=== PATIENT | male | born 1965 | race Caucasian/White ===

== ENCOUNTER 2018-02-27 08:21 | Emergency (ER) | payer OTHER, MEDICAID ==
[~2018-02-27] VITALS: Ht 160 cm; Wt 121.1 kg
[~2018-02-27 08:21] MED LIST: BENA20TA PO
[2018-02-27 08:27] VITALS: BP 158/79
--- NOTE | 2018-02-27 08:29 | NUR ---
PT AMBULATES TO BED 7
--- NOTE | 2018-02-27 08:40 | NUR ---
PATIENT PRESENTS TO ED WITH C/O PRODUCTIVE COUGH X 1 WK--DENIES F/C NO RHINORRHEA NO HEADACHE DENIES SOB PT CONTRIBUTES COUGH TO "LITTLE PINK PILL" HE TAKES FOR HTN-- FULL CLEAR SPEECH, UPBEAT-JOKING WITH STAFF . DENIES N/V/D; SKIN IS PINK/WARM/DRY; AAOX4 WITH EVEN AND STEADY GAIT; LUNGS LIGHT RALES BL; HR EVEN AND REGULAR; PT DENIES ANY FEVER, CP, SOB AT THIS TIME; PATIENT STATES PAIN OF 0/10 AT THIS TIME; VSS; PATIENT POSITIONED FOR COMFORT; HOB ELEVATED; BEDRAILS UP X2; BED DOWN. ER MD MADE AWARE OF PT STATUS.
--- NOTE | 2018-02-27 09:06 | NUR ---
to and from radiology via
[2018-02-27 09:23] VITALS: BP 139/78
--- NOTE | 2018-02-27 09:24 | NUR ---
Patient discharged with v/s stable. Written and verbal after care instructions given and explained. Patient alert, oriented and verbalized understanding of instructions. Ambulatory with steady gait. All questions addressed prior to discharge. ID band removed. Patient advised to follow up with PMD. Rx of PROMETHAZINE, AZITHROMYCIN given. Patient educated on indication of medication including possible reaction and side effects. Opportunity to ask questions provided and answered.
== END 2018-02-27 09:24 | disposition home or self-care (01) ==
LOC: MED 08:21
DX: J20.9 Acute bronchitis, unspecified (principal); I10 Essential (primary) hypertension
CPT/HCPCS: 71046; 99284

== ENCOUNTER 2019-10-02 10:39 | Emergency (ER) | payer BC, MEDICAID ==
[~2019-10-02] VITALS: Ht 165.1 cm; Wt 118.4 kg
[2019-10-02 10:45] VITALS: BP 130/86
--- NOTE | 2019-10-02 10:54 | NUR ---
PT TAKEN TO ER BED 05
--- NOTE | 2019-10-02 10:56 | NUR ---
PT GIVE FACE MASK. DR. CUEVAS MADE AWARE OF PT SYMPTOMS. Addendum: 10/02/19 at 1105 by HAILE PT GIVEN FACE MASK AND APPLIED OVER NOSE/MOUTH.
--- NOTE | 2019-10-02 11:00 | NUR ---
CAME WITH FRIEND. C/O HACKING COUGH X 1 MONTH THAT IS WORSENING. PHLEGM TINGED WITH BLOOD SOMETIMES WHEN COUGHING FORCEFULLY. STATES NIGHT SWEATS, N/V 1-2X DAILY X 2 WKS. DENIES FEVER, DIARRHEA. PLEURITIC CHEST PAIN 8/10 WITH COUGH. LUNGS CLEAR BILATERALLY. RR 24. TACHY AT 107. PT ALERT AND AWAKE, WHEELCHAIR BOUND. HX- HTN
--- NOTE | 2019-10-02 11:09 | NUR ---
CXR AT BEDSIDE.
--- NOTE | 2019-10-02 11:29 | NUR ---
nose swab done
--- NOTE | 2019-10-02 12:10 | NUR ---
DR CARDENAS AT BEDSIDE
[2019-10-02] MEDS ORDERED: ALBUTEROL SULFATE/IPRATROPIU 3 ML SOL IH ONE (12:25)
--- NOTE | 2019-10-02 12:35 | NUR ---
HHN THERAPY AND RESPIRATORY DRUG GIVEN ORDERED
--- NOTE | 2019-10-02 13:54 | NUR ---
PAIN 4/10 AFTER BREATHING TX
[2019-10-02 13:55] VITALS: BP 134/81
--- NOTE | 2019-10-02 13:55 | NUR ---
Patient discharged with v/s stable. Written and verbal after care instructions given and explained REGARDING COUGH. Patient alert, oriented and verbalized understanding of instructions. PT SELF ASSISTED WHEELCHAIR. All questions addressed prior to discharge. ID band removed. Patient advised to follow up with PMD. Rx of ALBUTEROL, PREDNISONE given. Patient educated on indication of medication including possible reaction and side effects. Opportunity to ask questions provided and answered.
== END 2019-10-02 13:55 | disposition home or self-care (01) ==
LOC: MED 10:39
DX: R05 Cough (principal); I11.0 Hypertensive heart disease with heart failure; I50.9 Heart failure, unspecified; Z98.890 Other specified postprocedural states; Z79.899 Other long term (current) drug therapy
CPT/HCPCS: 71045; 87804; 94640; 99284; J7620; Q0092

== ENCOUNTER 2019-11-15 15:48 | Emergency (ER) | payer MEDICARE, MEDICAID ==
[~2019-11-15] VITALS: Ht 157.5 cm; Wt 122.9 kg
[2019-11-15 15:48] VITALS: BP 135/77
--- NOTE | 2019-11-15 15:52 | NUR ---
PT TO BED 10
--- NOTE | 2019-11-15 16:02 | NUR ---
54/M BIB SELF C/O GENERALIZED ABDOMINAL PAIN PAIN X 3 DAYS AGO. LAST BM THIS AM .NORMAL, DENIES UTI S/S. PMH- CHRONIC BACK PAIN. PATIENT STATES PAIN OF 7/10 AT THIS TIME. PATIENT POSITIONED FOR COMFORT; HOB ELEVATED; BEDRAILS UP X1; BED DOWN. ER MD MADE AWARE OF PT STATUS.
--- NOTE | 2019-11-15 16:24 | NUR ---
LAB AT BEDSIDE.
[2019-11-15 16:38] LABS: BASOPHILS # (AUTO) 0.1 K/uL (0.00-0.22); BASOPHILS % (AUTO) 0.9 % (0.0-2.0); EOSINOPHILS # (AUTO) 0.2 K/uL (0-0.4); EOSINOPHILS % (AUTO) 1.9 % (0.0-4.0); HEMATOCRIT 43.4 % (36-52); HEMOGLOBIN 14.2 g/dL (12.0-18.0); LYMPHOCYTES # (AUTO) 2.1 K/uL (2.0-11.5); LYMPHOCYTES % (AUTO) 17.4 % (20.5-51.1); MEAN CORPUSCULAR HEMOGLOBIN 27 pg (27-31); MEAN CORPUSCULAR HGB CONC 33 g/dL (33-37); MEAN CORPUSCULAR VOLUME 82.3 fL (80-94); MONOCYTES # (AUTO) 0.7 K/uL (0.8-1.0); MONOCYTES % (AUTO) 5.3 % (1.7-9.3); NEUTROPHILS # (AUTO) 9.2 K/uL (1.8-7.7); NEUTROPHILS % (AUTO) 74.5 % (42.2-75.2); PLATELET COUNT (AUTO) 278 K/uL (140-450); RED BLOOD CELL COUNT(AUTO) 5.27 MIL/uL (4.20-6.10); RED CELL DISTRIBUTION WIDTH 14.8 % (11.6-13.7); WHITE BLOOD COUNT (AUTO) 12.4 K/uL (4.8-10.8)
[2019-11-15 16:41] LABS: APPEARANCE,URINE CLEAR (CLEAR); BILIRUBIN,URINE NEGATIVE (NEGATIVE); BLOOD, URINE NEGATIVE (NEGATIVE); COLOR,URINE YELLOW (YELLOW); LEUKOCYTE ESTERASE ,URINE NEGATIVE (NEGATIVE); NITRITE, URINE NEGATIVE (NEGATIVE); PH,URINE 5.5 (5.0-9.0); UGLUCOSE NEGATIVE (NEGATIVE)
[2019-11-15 17:06] LABS: ANION GAP 8.4 (8-16); POTASSIUM 4.4 mmol/L (3.5-5.1)
[2019-11-15 17:07] LABS: ALBUMIN 3.3 g/dL (3.4-5.0); CREATININE 1.4 mg/dL (0.7-1.3); TOTAL BILIRUBIN 0.4 mg/dL (0.0-1.0)
[2019-11-15 18:08] VITALS: BP 125/62
--- NOTE | 2019-11-15 18:09 | NUR ---
Patient discharged with v/s stable. Written and verbal after care instructions given and explained. Patient alert, oriented and verbalized understanding of instructions. Wheel Chair Assisted with to car. All questions addressed prior to discharge. ID band removed. Patient advised to follow up with PMD.NO Rx given. Patient educated on indication of medication including possible reaction and side effects. Opportunity to ask questions provided and answered.
== END 2019-11-15 18:00 | disposition home or self-care (01) ==
LOC: MED 15:52
DX: R10.9 Unspecified abdominal pain (principal); R05 Cough; I10 Essential (primary) hypertension; Z98.890 Other specified postprocedural states
CPT/HCPCS: 36415; 80053; 81003; 83690; 85025; 99284

== ENCOUNTER 2019-12-28 19:10 | Inpatient (IN) | payer OTHER, MEDICAID ==
[~2019-12-28] VITALS: Ht 160 cm; Wt 121.6 kg
[2019-12-28 19:25] VITALS: BP 107/75
--- NOTE | 2019-12-28 19:28 | NUR ---
TO LOBBY A/W BED AMBULATORY
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
--- NOTE | 2019-12-28 20:02 | NUR ---
Dr. Winston examining patient.
--- NOTE | 2019-12-28 20:27 | NUR ---
PT TAKEN TO CT
--- NOTE | 2019-12-28 20:35 | NUR ---
PT RETURN FROM CT
--- NOTE | 2019-12-28 20:35 | NUR ---
Claudy lopez in [facility] - 12/28/19 at 2035 by BARB PATIENT BACK FROM CT.
[2019-12-28 21:12] LABS: BASOPHILS # (AUTO) 0.1 K/uL (0.00-0.22); BASOPHILS % (AUTO) 0.6 % (0.0-2.0); EOSINOPHILS # (AUTO) 0.2 K/uL (0-0.4); EOSINOPHILS % (AUTO) 1.3 % (0.0-4.0); HEMATOCRIT 46.4 % (36-52); LYMPHOCYTES # (AUTO) 3.1 K/uL (2.0-11.5); MEAN CORPUSCULAR HEMOGLOBIN 27 pg (27-31); MEAN CORPUSCULAR HGB CONC 32 g/dL (33-37); MEAN CORPUSCULAR VOLUME 82.1 fL (80-94); MONOCYTES # (AUTO) 0.7 K/uL (0.8-1.0); MONOCYTES % (AUTO) 4.9 % (1.7-9.3); NEUTROPHILS # (AUTO) 11.2 K/uL (1.8-7.7); NEUTROPHILS % (AUTO) 73.2 % (42.2-75.2); PLATELET COUNT (AUTO) 253 K/uL (140-450); RED BLOOD CELL COUNT(AUTO) 5.65 MIL/uL (4.20-6.10); WHITE BLOOD COUNT (AUTO) 15.3 K/uL (4.8-10.8)
[2019-12-28 21:22] LABS: ANION GAP 14.3 (8-16); CARBON DIOXIDE 27.6 mmol/L (21-32); CREATININE 1.6 mg/dL (0.6-1.3); POTASSIUM 3.9 mmol/L (3.5-5.1)
[2019-12-28 21:28] LABS: ALBUMIN 3.7 g/dL (3.4-5.0); TOTAL BILIRUBIN 0.6 mg/dL (0.0-1.0)
--- NOTE | 2019-12-28 22:01 | NUR ---
EKG PERFORMED AT BEDSIDE
--- NOTE | 2019-12-28 22:26 | NUR ---
PATIENT SITTING UP IN CHAIR, NO NEEDS NEEDS ADDRESSED.
--- NOTE | 2019-12-28 22:30 | NUR ---
VSS on monitor. patient sitting up in bed.
--- NOTE | 2019-12-28 23:20 | NUR ---
2ND TROP DRAWN---CONTINUE TO WAIT FOR DISPO
[2019-12-29] MEDS ORDERED: ASPIRIN 325 MG TAB PO ONE (00:05)
--- NOTE | 2019-12-29 00:30 | NUR ---
PATIENT IV STARTED IN LAC. PATIENT TOLERATED WELL. VSS ON MONITOR.
[2019-12-29] MEDS ORDERED: FUROSEMIDE 40 MG/4 ML VIAL IVP ONE (00:35)
--- NOTE | 2019-12-29 01:11 | NUR ---
PATIENT BEING EVALUATED BY MED STUDENTS AT BEDSIDE.
--- NOTE | 2019-12-29 01:29 | NUR ---
PATIENT ADMITTED TO THE CARE OF DR. BAZZI. PATEINT TRANSFERRED ON MONITOR VIA RDUNFERMLINE BY EMT AND RN. REPORT GIVEN TO TELE NURSE DALLAS.
[2019-12-29 01:30] VITALS: BP 123/93
--- NOTE | 2019-12-29 01:30 | NUR ---
RECEIVED BEDSIDE REPORT FROM ER NURSE. PT CAME IN [facility] AND ABLE TO AMBULATE TO [facility] BED. BREATHING EVEN AND UNLABORED WITH RA. SKIN INTACT, WARM AND DRY TO TOUCH. IV SITE ON LAC 20G, PATENT, INTACT, AND ASYMPTOMATIC. BOARD UPDATED, MRSA SWAB DONE. VS CHECKED, WITHIN PT'S BASELINE. ORIENTED ROOM TO PT. ALL SAFETY MEASUREMENT ARE MET. BED IN LOW POSITION, CALL LIGHT WITHIN REACH.
[2019-12-29 01:42] LABS: PROTHROMBIN TIME 11.2 secs (10.8-13.4)
[2019-12-29] MEDS: HYDROcodone/APAP 10/325 MG 1 TAB TAB PO PRN ×2 (02:26→14:46)
[2019-12-29] MEDS: guaiFENesin DM 200/20 MG-10 ML 10 ML UDC PO PRN ×3 (02:26→17:13)
--- NOTE | 2019-12-29 02:26 | NUR ---
PT C/O LEFT LOW RIB PAIN, 05/28. GIVEN NORCO, PT COUGHING, GIVEN ROBITUSSIN DM MD ORDERED. PT TOLERATED WELL.
--- NOTE | 2019-12-29 03:01 | NUR ---
PAGED DR. BAZZI FOR ELEVATED TROPONIN AND DIET.
[2019-12-29 04:00] VITALS: BP 106/70
--- NOTE | 2019-12-29 05:48 | NUR ---
PT SLEEPING IN BED COMFORTABLY. NO ACUTE DISTRESS NOTED.
--- NOTE | 2019-12-29 06:40 | NUR ---
PT IN STABLE CONDITION. WILL ENDORSE PT TO DAY SHIFT NURSE.
--- NOTE | 2019-12-29 07:15 | NUR ---
RECEIVED PT. FROM NET FISHER NURSEDALLAS. PT. IS IN BED ALERT AND AWAKE. IV ON THE LEFT AC 20G SALINE LOCK. SKIN IS INTACT. DIET STILL NOT IN PLACED, WILL CALL MD FOR FOLLOW UP. CALL LIGHT WITHIN REACH. WILL CONTINUE TO MONITOR.
[2019-12-29 08:00] VITALS: BP 124/82
--- NOTE | 2019-12-29 08:21 | NUR ---
PATIENT HAS BEEN SCREENED AND CATEGORIZED MODERATE NUTRITION RISK. PATIENT WILL BE SEEN WITHIN 3-5 DAYS OF ADMISSION. 12/31/19 01/02/[address]
--- NOTE | 2019-12-29 09:05 | NUR ---
RECEIVED CRITICAL LAB VALUE OF TROPONIN 0.082 FROM JACOB. WILL INFORM
--- NOTE | 2019-12-29 09:06 | NUR ---
TROPONIN LEVEL IS TRENDING DOWN. WILL INFORM MD.
--- NOTE | 2019-12-29 09:20 | NUR ---
ATTEMPTED TO REACH DR. BAZZI REGARDING PT'S CRITICAL TROPONIN, BUT LINE IS BUSY AND OFFICE IS NOT ANSWERING.
[2019-12-29] MEDS: BENAZEPRIL 20 MG TAB PO SCH (10:15)
[2019-12-29] MEDS: HYDROcodone/APAP 5/325 MG 1 TAB TAB PO PRN ×2 (10:15→18:40)
--- NOTE | 2019-12-29 10:17 | NUR ---
MORNING MEDICATIONS GIVEN. BP 124/82, HR 105. NO SIGNS OF DISTRESS NOTED. COMPLAINS OF PAIN 03/28. MEDICATED WITH NORCO 5/325 PO. WILL CONTINUE TO MONITOR.
[2019-12-29] MEDS ORDERED: ALBUTEROL 0.083% 2.5 MG/3 ML NEBU INH PRN (11:25)
[2019-12-29] MEDS ORDERED: ONDANSETRON 4 MG/2 ML VIAL IVP PRN (11:25)
[2019-12-29] MEDS ORDERED: LORazepam 2 MG/ML VIAL IVP PRN (11:25)
[2019-12-29] MEDS ORDERED: HYDROcodone/APAP 5/325 MG 1 TAB TAB PO PRN (11:25)
[2019-12-29] MEDS ORDERED: ACETAMINOPHEN 325 MG TAB PO PRN (11:25)
[2019-12-29 12:00] VITALS: BP 131/95
[2019-12-29] MEDS: IPRATROPIUM 0.02% 0.5 MG/2.5 ML NEBU INH SCH ×2 (13:12→19:09)
[2019-12-29 15:06] LABS: CREATINE KINASE MB 4.3 ng/mL (0-3.6)
[2019-12-29 16:00] VITALS: BP 125/92
--- NOTE | 2019-12-29 17:00 | NUR ---
HOME MEDICATIONS COLLECTED FROM PT. PATIENT REASSURES THAT HE DID NOT TAKE THEM AND JUST WANTED TO SHOW THE NURSE.
--- NOTE | 2019-12-29 17:16 | NUR ---
COUGH MEDICATION GIVEN FOR PERSISTENT, CONTINUOUS COUGH.
--- NOTE | 2019-12-29 17:20 | NUR ---
MEDICATIONS GIVEN TO PHARMACY NOW.
--- NOTE | 2019-12-29 17:40 | NUR ---
SPOKE TO DR. BAZZI ABOUT PT'S TROPONIN, NO NEW ORDERS GIVEN. DISCUSSED ABOUT HOME MEDICATIONS NEEDED TO BE TAKEN, NEW ORDERS WERE GIVEN FOR WARFARIN PER PHARMACY DOSE AND ATORVASTATIN 40MG DAILY. READ BACK AND VERIFIED. WILL FOLLOW THROUGH.
[2019-12-29] MEDS ORDERED: WARFARIN 5 MG TAB PO SCH (18:10)
--- NOTE | 2019-12-29 19:20 | NUR ---
ENDORSED PT. TO POWER PLANT OPERATIONS MANAGER NURSE FOR CONTINUITY OF CARE.
--- NOTE | 2019-12-29 19:21 | NUR ---
RECEIVED PT SITTING ON BED ON HIGH FOWLERS POSITION, AAOX4, VITAL SIGNS STABLE, ST ON TELE, DENIES CHEST PAIN BUT COMPLAINING OF LEFT RIB PAIN AGGRAVATED BY COUGHING, ON PRN PAIN MEDICATION, MOIST COUGH INTERMITTENTLY, PLAN OF CARE DISCUSSED, SAFETY MEASURES IN PLACE, CALL LIGHT WITHIN REACH.
[2019-12-29 20:00] VITALS: BP 119/79
--- NOTE | 2019-12-29 20:05 | NUR ---
PT WITH NAUSEA AND VOMITING, MEDICATED PRN WITH ZOFRAN WITH GOOD RESULT, STILL COMPLAINING OF LEFT SIDE/RIB PAIN AGGRAVATED BY COUGHING, WILL PAGED DR Les BAZZI, ALL NEEDS ATTENDED.
[2019-12-29] MEDS: MORPHINE SULFATE 2 MG/ML SYR IVP PRN (21:24)
[2019-12-30] VITALS: BP 108/62
--- NOTE | 2019-12-30 | NUR ---
PT SLEEPING, EASILY AROUSABLE, VITAL SIGNS STABLE, ST ON TELE, DENIES PAIN AT THIS TIME, NO SOB NOTED, CONTINUE TO MONITOR CLOSELY.
[2019-12-30] MEDS: IPRATROPIUM 0.02% 0.5 MG/2.5 ML NEBU INH SCH ×4 (01:00→19:17)
[2019-12-30] MEDS: guaiFENesin DM 200/20 MG-10 ML 10 ML UDC PO PRN ×4 (03:26→23:07)
--- NOTE | 2019-12-30 03:30 | NUR ---
PT SLEEPING, EASILY AROUSABLE, VITAL SIGNS STABLE, HR-108 BPM, DENIES PAIN, NO SOB NOTED, AMBULATED TO BR WITH STEADY GAIT, VOIDED FREELY, URINE SENT TO LAB FOR TEST, STILL WITH INTERMITTENT COUGH, MEDICATED WITH COUGH SYRUP PRN, PT WENT BACK TO SLEEP, MONITORED CLOSELY.
[2019-12-30 04:00] VITALS: BP 104/74
--- NOTE | 2019-12-30 06:00 | NUR ---
SEEN PT SLEEPING, VISIBLE CHEST RISE AND FALL, NO DISTRESS NOTED, MONITORED CLOSELY.
[2019-12-30 06:34] LABS: BASOPHILS # (AUTO) 0.1 K/uL (0.00-0.22); BASOPHILS % (AUTO) 0.5 % (0.0-2.0); EOSINOPHILS # (AUTO) 0.4 K/uL (0-0.4); EOSINOPHILS % (AUTO) 2.7 % (0.0-4.0); HEMATOCRIT 43.9 % (36-52); HEMOGLOBIN 14.1 g/dL (12.0-18.0); MEAN CORPUSCULAR HEMOGLOBIN 26 pg (27-31); MEAN CORPUSCULAR HGB CONC 32 g/dL (33-37); MEAN CORPUSCULAR VOLUME 81.9 fL (80-94); MONOCYTES # (AUTO) 0.6 K/uL (0.8-1.0); MONOCYTES % (AUTO) 4.6 % (1.7-9.3); NEUTROPHILS # (AUTO) 10.5 K/uL (1.8-7.7); NEUTROPHILS % (AUTO) 77.2 % (42.2-75.2); PLATELET COUNT (AUTO) 215 K/uL (140-450); RED BLOOD CELL COUNT(AUTO) 5.35 MIL/uL (4.20-6.10); WHITE BLOOD COUNT (AUTO) 13.6 K/uL (4.8-10.8)
[2019-12-30 06:58] LABS: PROTHROMBIN TIME 11.4 secs (10.8-13.4)
[2019-12-30 07:06] LABS: ANION GAP 12.2 (8-16); CARBON DIOXIDE 28.3 mmol/L (21-32); CREATININE 1.4 mg/dL (0.6-1.3); POTASSIUM 4.5 mmol/L (3.5-5.1)
--- NOTE | 2019-12-30 07:10 | NUR ---
PT SLEEPING, NO SIGNS OF DISTRESS, REPORT GIVEN TO ALEXANDRO MOSELEY FOR CONTINUITY OF CARE.
--- NOTE | 2019-12-30 07:10 | NUR ---
RECEIVED BEDSIDE REPORT FROM NIGHTSHIFT NURSE. PT RESTING IN BED UPON ARRIVAL. ABLE TO MAKE NEEDS KNOWN. RESPIRATIONS EVEN AND UNLABORED WITH NO SOB OR RESPIRATORY DISTRESS. SKIN WARM AND DRY TO TOUCH. IV SITE IN LEFT AC 20G IS CLEAN, DRY, AND INTACT. SAFETY MEASURES IN PLACE. WILL CONTINUE TO MONITOR.
[2019-12-30 07:15] LABS: MAGNESIUM 1.8 mg/dL (1.8-2.4); PHOSPHORUS 3.2 mg/dL (2.5-4.9)
[2019-12-30 08:00] VITALS: BP 128/74
[2019-12-30] MEDS ORDERED: BENAZEPRIL 20 MG TAB PO SCH (09:00)
[2019-12-30] MEDS: BENAZEPRIL 20 MG TAB PO SCH (09:28)
[2019-12-30] MEDS: ATORVASTATIN 20 MG TAB PO SCH (09:29)
--- NOTE | 2019-12-30 09:31 | NUR ---
ADMINISTERED SCHED MED PRESCRIBED PER MD ORDER. PT TOLERATED WELL. MEDICATION EDUCATION PERFORMED. PT VERBALIZED UNDERSTANDING. WARFARIN NOT GIVEN BECAUSE PHARMACY SAID THE MEDICATION WILL BE ADMINISTERED TONIGHT. SAFETY MEASURES IN PLACE. WILL CONTINUE TO MONITOR.
[2019-12-30] MEDS: MORPHINE SULFATE 2 MG/ML SYR IVP PRN ×2 (09:42→13:46)
--- NOTE | 2019-12-30 09:42 | NUR ---
PT CALLED AND COMPLAINED OF SEVERE PAIN AND COUGHING. PRN PAIN MEDICATION AND GUAIFENESIN ADMINISTERED PRESCRIBED PER MD ORDER. PT TOLERATED WELL. MEDICATION EDUCATION PERFORMED. PT VERBALIZED UNDERSTANDING. SAFETY MEASURES IN PLACE. WILL CONTINUE TO MONITOR
--- NOTE | 2019-12-30 11:00 | NUR ---
HOURLY ROUNDING. PT SLEEPING IN BED. RESPONSIVE TO VERBAL AND TACTILE STIMULI. ABLE TO MAKE NEEDS KNOWN. RESPIRATIONS EVEN AND UNLABORED WITH NO SOB OR RESPIRATORY DISTRESS. SKIN WARM AND DRY TO TOUCH. SAFETY MEASURES IN PLACE. WILL CONTINUE TO MONITOR.
--- NOTE | 2019-12-30 11:56 | NUR ---
DC PLANNIN YRS OLD MALE PT WAS ADMITTED FROM HOME WITH A DX OF HEART FAILURE . PT HAS A HX OF CHF, VALVE REPLACEMENT AND HTN. TROPONIN 0.089,0.123.0.082, 0.059 ,BNP 529 AND 514 .CT CHEST SHOWED PROSTHETIC AORTIC VALVE, CORONARY ARTERY CALCIFICATIONS AND FATTY LIVER. CONTAINER MAKER CONSULT WITH DR JLUIS Hernandez NEPHRO CONSULT WITH DR WHITMAN FOR JM AND DR TRISTEN ROCK FOR LEUKOCYTOSIS . DC PLAN TO GO HOME WHEN STABLE CM TO FOLLOW POST STABILIZATION FAXED TO [employer] ON 12/29/19 AND TODAY CM TO FOLLOW Addendum: 12/31/19 at 1125 by Maria C Santana CM DC PLANNING: SEEN BY SUMMER CAMP COUNSELOR DR MILE MILLAN ORDERED NS AT 75ML/HR MONITOR STRICT I&O AND WAITING FOR URINE AND BLOOD CULTURE SEEN BY ID ORDERED TO CONTINUE THE IV LEVAQUIN. DC PLAN AWAITING FOR CARDIAC EVALUATION .STARTED NEURONTIN FOR POSSIBLE LEFT LOWER EXTREMITY NEUROPATHY. POST STABILIZATION FORM FAXED TO [facility] PLAN TO GO HOME WHEN STABLE CM TO FOLLOW
[2019-12-30 11:59] LABS: CREATINE KINASE MB 7.7 ng/mL (0-3.6)
[2019-12-30 12:00] VITALS: BP 104/71
--- NOTE | 2019-12-30 12:07 | NUR ---
RECEIVED CRITICAL LAB FROM CHEMISTRY. PT TROPONIN LEVEL IS 0.641. DR. BAZZI WAS PAGED. SAFETY MEASURES IN PLACE. WILL CONTINUE TO MONITOR
[2019-12-30] MEDS: GABAPENTIN 100 MG CAP PO SCH ×2 (12:47→17:11)
--- NOTE | 2019-12-30 12:47 | NUR ---
ADMINISTERED SCHED MED PRESCRIBED PER MD ORDER. PT TOLERATED WELL. MEDICATION EDUCATION PERFORMED. PT VERBALIZED UNDERSTANDING. SAFETY MEASURES IN PLACE. WILL CONTINUE TO MONITOR.
[2019-12-30] MEDS: NACL 0.9% 1,000 ML IV SCH (15:04)
--- NOTE | 2019-12-30 15:04 | NUR ---
ADMINISTERED SCHED MED PRESCRIBED PER MD ORDER. PT TOLERATED WELL. MEDICATION EDUCATION PERFORMED. PT VERBALIZED UNDERSTANDING. SAFETY MEASURES IN PLACE. WILL CONTINUE TO MONITOR.
[2019-12-30 16:00] VITALS: BP 105/73
[2019-12-30] MEDS ORDERED: WARFARIN 5 MG TAB PO SCH (17:00)
--- NOTE | 2019-12-30 17:31 | NUR ---
ADMINISTERED SCHED MED PRESCRIBED PER MD ORDER. PT TOLERATED WELL. MEDICATION EDUCATION PERFORMED. PT VERBALIZED UNDERSTANDING. SAFETY MEASURES IN PLACE. WILL CONTINUE TO MONITOR.
--- NOTE | 2019-12-30 18:30 | NUR ---
HOURLY ROUNDING. PT RESTING IN BED UPON ARRIVAL. ABLE TO MAKE NEEDS KNOWN. RESPIRATIONS EVEN AND UNLABORED WITH NO SOB OR RESPIRATORY DISTRESS. SKIN WARM AND DRY TO TOUCH. SAFETY MEASURES IN PLACE. WILL CONTINUE TO MONITOR.
--- NOTE | 2019-12-30 19:15 | NUR ---
RECEIVED ENDORSEMENT AT BEDSIDE FR. REBEKAH RN. PATIENT IS AWAKE, ALERT AND ORIENTED. NO SOB NOTED. NO C/O PAIN AT THIS TIME. RESPIRATION EVEN AND UNLABORED. IV SITE AT LAC GAUGE 20. PLAN OF CARE WAS DISCUSSED. FALL PREVENTION PRECAUTION ACTIVATED. CALL LIGHT WITHIN REACH AT ALL TIMES. Addendum: 12/30/19 at 1952 by Renae Warner RN RECEIVED REPORT FROM ALEXANDRO RAM NOT FROM REBEKAH
--- NOTE | 2019-12-30 19:15 | NUR ---
ENDORSED AT BEDSIDE TO NIGHTSHIFT NURSE. PT RESTING IN BED UPON ARRIVAL. ABLE TO MAKE NEEDS KNOWN. RESPIRATIONS EVEN AND UNLABORED WITH NO SOB OR RESPIRATORY DISTRESS. SKIN WARM AND DRY TO TOUCH. SAFETY MEASURES IN PLACE. PT IS STABLE
[2019-12-30 20:00] VITALS: BP 112/60
--- NOTE | 2019-12-30 21:00 | NUR ---
PATIENT IS SLEEPING. RESPIRATION EVEN AND UNLABORED. NO SOB NOTED.
[2019-12-30] MEDS: HYDROcodone/APAP 5/325 MG 1 TAB TAB PO PRN (23:05)
--- NOTE | 2019-12-30 23:05 | NUR ---
VSS. ADMINISTERED PRN NORCO FOR ABD PAIN 04/27 PT TOLERATED WELL. PT WITH NON PRODUCTIVE COUGH ADMINISTERED PRN ROBITUSSIN. ALL NEEDS MET. CALL LIGHT WITHIN REACH.
[2019-12-31] VITALS: BP 107/71
--- NOTE | 2019-12-31 00:05 | NUR ---
PATIENT IS RESTING. NO PAIN NOTED.
[2019-12-31] MEDS: IPRATROPIUM 0.02% 0.5 MG/2.5 ML NEBU INH SCH ×4 (01:00→19:00)
--- NOTE | 2019-12-31 01:02 | NUR ---
NO HHN TX GIVEN.PT CLAIMS DURING 1899 TX THAT HE DOES NOT WANT TO BE WOKEN UP FOR SECOND TX.
[2019-12-31] MEDS: LEVOFLOXACIN 500 MG/D5W PREMIX 100 ML IV SCH ×2 (01:30→22:42)
--- NOTE | 2019-12-31 02:00 | NUR ---
PATIENT IS SOUND ASLEEP. NO SOB NOTED.
[2019-12-31 04:00] VITALS: BP 126/87
[2019-12-31] MEDS: NACL 0.9% 1,000 ML IV SCH ×3 (04:00→21:11)
--- NOTE | 2019-12-31 04:10 | NUR ---
PATIENT IS ASLEEP. EASILY AROUSABLE THRU VERBAL. VITAL SIGNS TAKEN AND RECORDED. NO DISTRESS NOTED. DENIES PAIN
[2019-12-31 06:18] LABS: BASOPHILS # (AUTO) 0.1 K/uL (0.00-0.22); EOSINOPHILS # (AUTO) 0.5 K/uL (0-0.4); EOSINOPHILS % (AUTO) 4.1 % (0.0-4.0); HEMATOCRIT 42.1 % (36-52); HEMOGLOBIN 13.5 g/dL (12.0-18.0); LYMPHOCYTES # (AUTO) 2.7 K/uL (2.0-11.5); LYMPHOCYTES % (AUTO) 20.4 % (20.5-51.1); MEAN CORPUSCULAR HEMOGLOBIN 26 pg (27-31); MEAN CORPUSCULAR HGB CONC 32 g/dL (33-37); MEAN CORPUSCULAR VOLUME 82.2 fL (80-94); MONOCYTES # (AUTO) 0.6 K/uL (0.8-1.0); MONOCYTES % (AUTO) 4.8 % (1.7-9.3); NEUTROPHILS # (AUTO) 9.2 K/uL (1.8-7.7); NEUTROPHILS % (AUTO) 69.7 % (42.2-75.2); PLATELET COUNT (AUTO) 205 K/uL (140-450); RED BLOOD CELL COUNT(AUTO) 5.12 MIL/uL (4.20-6.10); WHITE BLOOD COUNT (AUTO) 13.2 K/uL (4.8-10.8)
[2019-12-31 06:49] LABS: CARBON DIOXIDE 30.6 mmol/L (21-32); CREATININE 1.3 mg/dL (0.6-1.3); POTASSIUM 4.6 mmol/L (3.5-5.1)
[2019-12-31 06:50] LABS: PROTHROMBIN TIME 12.8 secs (10.8-13.4)
[2019-12-31 06:54] LABS: MAGNESIUM 1.8 mg/dL (1.8-2.4); PHOSPHORUS 3.4 mg/dL (2.5-4.9)
--- NOTE | 2019-12-31 07:29 | NUR ---
ENDORSED PATIENT TO AM SHIFT RN FOR CONTINUITY OF CARE. NO SOB NOTED.
--- NOTE | 2019-12-31 07:30 | NUR ---
RECEIVED PT FROM OCCUPATIONAL THERAPY ASST NURSEVIDAL, PT IS AWAKE AND A FALL RISK, IV LINE ON THE LEFT AC G. 20 WITH 1/2 NS INFUSING AT 75 ML/HR, FALL PRECAUTION INITIATED, ALARM ACTIVATED, SIDE RAIS ARE UP AND CALL LIGHT WITHIN REACH, NO SIGN OF DISTRESS NOTED, PT DENIES PAIN AND WILL CONTINUE TO BE MONITORED
[2019-12-31 08:00] VITALS: BP 130/80
[2019-12-31 08:15] LABS: APPEARANCE,URINE SL CLOUDY (CLEAR); BILIRUBIN,URINE NEGATIVE (NEGATIVE); BLOOD, URINE NEGATIVE (NEGATIVE); COLOR,URINE AMBER (YELLOW); LEUKOCYTE ESTERASE ,URINE NEGATIVE (NEGATIVE); NITRITE, URINE NEGATIVE (NEGATIVE); UGLUCOSE NEGATIVE (NEGATIVE)
[2019-12-31] MEDS: BENAZEPRIL 20 MG TAB PO SCH (08:51)
[2019-12-31] MEDS: ATORVASTATIN 20 MG TAB PO SCH (08:52)
[2019-12-31] MEDS: GABAPENTIN 100 MG CAP PO SCH ×3 (08:52→18:27)
--- NOTE | 2019-12-31 08:52 | NUR ---
PT WAS GIVEN THE SCHEDULED AM MEDICATIONS, BP IS 117/77, PULSE IS116, O2 SATURATION IS 9I^%, TEMP IS 98.1, TOLERATED THE MEDICINES AND NO SIGN OF DISTRESS NOTED, WILL MONITOR PT. Addendum: 12/31/19 at 0857 by Nora Ley RN O2 SATURATION ON THE ABOVE NOTE IS 96%.
[2019-12-31] MEDS: guaiFENesin DM 200/20 MG-10 ML 10 ML UDC PO PRN (09:06)
--- NOTE | 2019-12-31 09:06 | NUR ---
PT WAS GIVEN ROBITUSSIN 10ML FOR THE C/O OF COUGH, WILL MONITOR PT.
[2019-12-31 09:16] LABS: RBC,URINE NONE SEEN /HPF (0-5); WBC,URINE 0-5 /HPF (0-5)
--- NOTE | 2019-12-31 11:20 | NUR ---
PT IS RESTING NOW AND NO SIGN OF DISTRESS NOTED.
[2019-12-31 12:00] VITALS: BP 115/67
--- NOTE | 2019-12-31 14:43 | NUR ---
PT WAS GIVEN ORAL MEDICATION NOW, WILL MONITOR PT.
[2019-12-31 16:00] VITALS: BP 128/87
[2019-12-31] MEDS ORDERED: WARFARIN 1 MG TAB ONE (17:41)
[2019-12-31] MEDS ORDERED: WARFARIN 5 MG TAB ONE (17:42)
[2019-12-31] MEDS: WARFARIN 1 MG, WARFARIN 5 MG PO SCH ×2 (18:29)
--- NOTE | 2019-12-31 18:29 | NUR ---
PT WAS GIVEN ORAL MEDICATIONS NOW, PARAMETERS CHECKED, WILL MONITOR PT.
--- NOTE | 2019-12-31 19:15 | NUR ---
ENDORSED PT TO UTILITY SUPERVISOR BOAT AND PLANT NURSE, VIDAL,FOR CONTINUITY OF CARE. PT IS STABLE AT THIS TIME.
--- NOTE | 2019-12-31 19:16 | NUR ---
ENDORSEMENT RECEIVED AT BEDSIDE FROM AM SHIFT RN. PATIENT IS LYING IN BED. ALERT AND ORIENTED. ABLE TO MAKE NEEDS KNOWN. NO SOB NOTED. RESPIRATION EVEN AND UNLABORED. DENIES PAIN AND DISCOMFORT. IV SITE INFUSING. PATIENT IS AMBULATORY. FULL CODE. NKA. PLAN OF CARE WAS DISCUSSED. CALL LIGHT WITHIN REACH.
--- NOTE | 2019-12-31 19:27 | NUR ---
PT REFUSED HHN TX. HE SAID HE DOES NOT WANT IT. PT IS 98% ON RA. HR 114. B/S DIMINISHED. WILL CONT TO MONITOR
[2019-12-31 20:00] VITALS: BP 112/68
--- NOTE | 2019-12-31 21:11 | NUR ---
PATIENT IS SLEEPING. RESPIRATION EVEN AND UNLABORED. IVF DONE INFUSING, HANGED NEW IV FLUID NS 1L AT 75 CC/HR PER MD ORDER.
[2019-12-31 22:18] LABS: BARBITURATE, URINE NEGATIVE ng/ml (NEG <=200); BENZODIAZEPINE, URINE NEGATIVE ng/mL (NEG <=200); CANNABINOID, URINE NEGATIVE ng/mL (NEG <=50); COCAINE, URINE NEGATIVE ng/mL (NEG <=300); OPIATE, URINE NEGATIVE ng/mL (NEG <=2000); PHENCYCLIDINE SCREEN,URINE NEGATIVE ng/mL (NEG <=25)
--- NOTE | 2019-12-31 22:47 | NUR ---
PATIENT IS SLEEPING EASILY AROUSABLE THRU VERBAL STIMULI. ADMINISTERED IV ATB ORDERED. NO A/R NOTED. MED ED PROVIDED. NOT IN ANY ACUTE DISTRESS. CONTINUE TO MONITOR.
--- NOTE | 2020-01-01 00:03 | NUR ---
PATIENT'S VITAL SIGNS TAKEN AND RECORDED. PATIENT STABLE. DENIES ANY PAIN/DISCOMFORT.
[2020-01-01 00:06] VITALS: BP 118/52
[2020-01-01] MEDS: IPRATROPIUM 0.02% 0.5 MG/2.5 ML NEBU INH SCH ×4 (00:29→19:33)
--- NOTE | 2020-01-01 00:29 | NUR ---
NO HHN TX. PT SAID TO NOT WAKE HIM UP AT 1AM. WILL CONT TO MONITOR
--- NOTE | 2020-01-01 01:51 | NUR ---
PATIENT IS SLEEPING. RESPIRATION EVEN AND UNLABORED. NOT IN ANY ACUTE DISTRESS.
--- NOTE | 2020-01-01 02:46 | NUR ---
NURSING ROUNDS DONE. PATIENT IS ASLEEP. NO SOB NOTED. CALL LIGHT WITHIN REACH
[2020-01-01 04:00] VITALS: BP 139/77
--- NOTE | 2020-01-01 06:27 | NUR ---
NOTED LAC IV SITE OUT OF THE VEIN. NO BLEEDING NOTED. REINSERTED G24 IV TO R ARM BY THE CHARGE NURSE ALEXANDRO QUICK. WITH GOOD BLOOD RETURN. SECURED SITE. TOLERATED INSERTION WELL. ATTEMPTED X1. RECONNECTED IVF, INFUSING WELL.
[2020-01-01 06:31] LABS: BASOPHILS # (AUTO) 0.1 K/uL (0.00-0.22); BASOPHILS % (AUTO) 0.8 % (0.0-2.0); EOSINOPHILS # (AUTO) 0.6 K/uL (0-0.4); EOSINOPHILS % (AUTO) 4.4 % (0.0-4.0); HEMATOCRIT 45.6 % (36-52); HEMOGLOBIN 14.5 g/dL (12.0-18.0); LYMPHOCYTES # (AUTO) 2.6 K/uL (2.0-11.5); LYMPHOCYTES % (AUTO) 20.2 % (20.5-51.1); MEAN CORPUSCULAR HEMOGLOBIN 26 pg (27-31); MEAN CORPUSCULAR HGB CONC 32 g/dL (33-37); MEAN CORPUSCULAR VOLUME 82.6 fL (80-94); MONOCYTES # (AUTO) 0.6 K/uL (0.8-1.0); MONOCYTES % (AUTO) 4.6 % (1.7-9.3); NEUTROPHILS # (AUTO) 9.1 K/uL (1.8-7.7); PLATELET COUNT (AUTO) 231 K/uL (140-450); RED BLOOD CELL COUNT(AUTO) 5.52 MIL/uL (4.20-6.10); RED CELL DISTRIBUTION WIDTH 14.6 % (11.6-13.7)
[2020-01-01 06:42] LABS: PROTHROMBIN TIME 14.7 secs (10.8-13.4)
[2020-01-01 06:51] LABS: ANION GAP 11.9 (8-16); CARBON DIOXIDE 28.4 mmol/L (21-32); POTASSIUM 4.3 mmol/L (3.5-5.1)
--- NOTE | 2020-01-01 07:10 | NUR ---
ENDORSED PATIENT AT BEDSIDE TO AM SHIFT RN FOR CONTINUITY OF CARE. NO SOB NOTED.
[2020-01-01 07:16] LABS: MAGNESIUM 1.9 mg/dL (1.8-2.4); PHOSPHORUS 2.9 mg/dL (2.5-4.9)
--- NOTE | 2020-01-01 07:25 | NUR ---
RECEIVED BEDSIDE REPORT FROM MULTIMEDIA EDUCATIONAL SPECIALIST NURSE. PT IS AWAKE AND ALERT IN BED, SHOWING NO S/S OF DISTRESS. ON ROOM AIR, SKIN IS INTACT. IV SITE CONNER 24 G, SECURED WITH AN ELBOW BOARD AND WRAPPED WITH GAUZE. FALL PRECAUTIONS IN PLACE, CALL LIGHT IS WITHIN REACH. WILL CONTINUE TO MONITOR.
--- NOTE | 2020-01-01 07:45 | NUR ---
PATIENT HAS BEEN SCREENED AND CATEGORIZED MODERATE NUTRITION RISK. PATIENT WILL BE SEEN WITHIN 3-5 DAYS OF ADMISSION. 01/03/20 01/05/[address]
[2020-01-01 08:00] VITALS: BP 137/79
[2020-01-01] MEDS: ATORVASTATIN 20 MG TAB PO SCH (09:18)
[2020-01-01] MEDS: BENAZEPRIL 20 MG TAB PO SCH (09:18)
[2020-01-01] MEDS: GABAPENTIN 100 MG CAP PO SCH ×3 (09:18→17:01)
--- NOTE | 2020-01-01 09:25 | NUR ---
AM MEDS ADMINISTERED, PT TOLERATED WELL.
[2020-01-01 12:00] VITALS: BP 119/58
--- NOTE | 2020-01-01 12:57 | NUR ---
PT SEEN BY DR BAZZI
[2020-01-01 16:00] VITALS: BP 147/45
[2020-01-01] MEDS ORDERED: WARFARIN 1 MG TAB ONE (16:58)
[2020-01-01] MEDS ORDERED: WARFARIN 5 MG TAB ONE (16:59)
[2020-01-01] MEDS: WARFARIN 1 MG, WARFARIN 5 MG PO SCH ×2 (17:03)
--- NOTE | 2020-01-01 18:32 | NUR ---
PT SITTING UP IN BED AND EATING DINNER. NO S/S OF ACUTE DISTRESS.
--- NOTE | 2020-01-01 19:23 | NUR ---
ENDORSED PT TO ACADEMIC ASSISTANT NURSE IN STABLE CONDITION
--- NOTE | 2020-01-01 19:24 | NUR ---
RECEIVED BEDSIDE REPORT FROM DAY SHIFT NURSE, MIKE. PT IS AWAKE AND ALERT IN BED, SHOWING NO S/S OF DISTRESS. ON ROOM AIR, SKIN IS INTACT, WARM AND DRY TO TOUCH. IV SITE CONNER 24 G, SECURED WITH AN ELBOW BOARD AND WRAPPED WITH GAUZE, PATENT, INTACT AND ASYMPTOMATIC. FALL PRECAUTIONS IN PLACE, CALL LIGHT IS WITHIN REACH. WILL CONTINUE TO MONITOR.
--- NOTE | 2020-01-01 19:43 | NUR ---
RECEIVED PATIENT ON ROOM AIR, PULSE OX SAT 98%. SCHEDULED BREATHING TREATMENT ADMINISTERED. TOLERATED TX WELL WITHOUT ADVERSE SIDE EFFECTS. PT MADE AWARE OF ORDERED MEDICATION FREQUENCY AND INSTRUCTED TO CALL NEEDED FOR SOB. NO ACUTE RESPIRATORY DISTRESS NOTED AT THIS TIME. WILL CONTINUE TO MONITOR.
[2020-01-01 20:00] VITALS: BP 128/69
[2020-01-01] MEDS: NACL 0.9% 1,000 ML IV SCH (20:00)
--- NOTE | 2020-01-01 22:19 | NUR ---
CHECKED PT, ASKING IF HAVING CHEST PAIN, OR ANY DISCOMFORT. PT DOING OK AND STATES NO PAIN OR ANY DISCOMFORT. WILL CONTINUE TO MONITOR.
[2020-01-01] MEDS: LEVOFLOXACIN 500 MG/D5W PREMIX 100 ML IV SCH (22:46)
--- NOTE | 2020-01-01 22:46 | NUR ---
GIVEN LEVAQUIN MD ORDERED. PT TOLERATED WELL. WILL CONTINUE TO MONITOR.
[2020-01-02] VITALS: BP 140/64
--- NOTE | 2020-01-02 00:05 | NUR ---
PT SLEEPING IN BED COMFORTABLY. VS WITHIN PT'S BASELINE. WILL CONTINUE TO MONITOR.
[2020-01-02] MEDS: IPRATROPIUM 0.02% 0.5 MG/2.5 ML NEBU INH SCH ×4 (01:00→19:00)
--- NOTE | 2020-01-02 02:36 | NUR ---
PT SLEEPING IN BED COMFORTABLY. NO ACUTE DISTRESS NOTED.
[2020-01-02 04:00] VITALS: BP 122/56
--- NOTE | 2020-01-02 05:00 | NUR ---
PT SLEEPING IN BED COMFORTABLY. NO ACUTE DISTRESS NOTED.
[2020-01-02 06:30] LABS: BASOPHILS # (AUTO) 0.1 K/uL (0.00-0.22); BASOPHILS % (AUTO) 0.7 % (0.0-2.0); EOSINOPHILS # (AUTO) 0.4 K/uL (0-0.4); EOSINOPHILS % (AUTO) 3.2 % (0.0-4.0); HEMATOCRIT 42.9 % (36-52); HEMOGLOBIN 13.7 g/dL (12.0-18.0); MEAN CORPUSCULAR HEMOGLOBIN 26 pg (27-31); MEAN CORPUSCULAR HGB CONC 32 g/dL (33-37); MEAN CORPUSCULAR VOLUME 82.5 fL (80-94); MONOCYTES # (AUTO) 0.4 K/uL (0.8-1.0); MONOCYTES % (AUTO) 3.7 % (1.7-9.3); NEUTROPHILS # (AUTO) 8.3 K/uL (1.8-7.7); NEUTROPHILS % (AUTO) 74.4 % (42.2-75.2); PLATELET COUNT (AUTO) 223 K/uL (140-450); RED CELL DISTRIBUTION WIDTH 14.9 % (11.6-13.7); WHITE BLOOD COUNT (AUTO) 11.2 K/uL (4.8-10.8)
[2020-01-02 06:55] LABS: ANION GAP 12.7 (8-16); CARBON DIOXIDE 26.5 mmol/L (21-32); CREATININE 1.3 mg/dL (0.6-1.3); POTASSIUM 4.2 mmol/L (3.5-5.1)
[2020-01-02 06:57] LABS: MAGNESIUM 1.8 mg/dL (1.8-2.4); PHOSPHORUS 2.7 mg/dL (2.5-4.9)
--- NOTE | 2020-01-02 07:05 | NUR ---
PT IN STABLE CONDITION, WILL ENDORSE PT TO DAY SHIFT NURSE FOR CONTINUOUS CARE.
--- NOTE | 2020-01-02 07:06 | NUR ---
RECEIVED REPORT FROM DIRECTOR OF KIDS NURSE DALLAS FOR CONTINUITY OF CARE. PT IN STABLE CONDITION. RESPIRATIONS EVEN AND UNLABORED. IV INTACT AND PATENT. SAFETY MEASURES IN PLACE AND PATENT. CALL LIGHT AT BEDSIDE. BED IN LOW POSITION. WILL CONTINUE TO MONITOR.
[2020-01-02 08:00] VITALS: BP 148/87
[2020-01-02] MEDS: ATORVASTATIN 20 MG TAB PO SCH (08:41)
[2020-01-02] MEDS: GABAPENTIN 100 MG CAP PO SCH ×3 (08:41→18:15)
[2020-01-02] MEDS: BENAZEPRIL 20 MG TAB PO SCH (08:41)
[2020-01-02] MEDS: NACL 0.9% 1,000 ML IV SCH (08:45)
--- NOTE | 2020-01-02 08:45 | NUR ---
GAVE ORDERED DUE MEDICATIONS AT THIS TIME. PT TOLERATED WELL. RESPIRATIONS EVEN AND UNLABORED. BED IN LOW POSITION. CALL LIGHT AT BEDSIDE. WILL CONTINUE TO MONITOR.
[2020-01-02 09:38] LABS: PROTHROMBIN TIME 17.3 secs (10.8-13.4)
--- NOTE | 2020-01-02 10:33 | NUR ---
PT WATCHING TV SITTING ON SIDE OF BED DANGLING FEET IN STABLE CONDITION. RESPIRATIONS EVEN AND UNLABORED. BED IN LOW POSITION. CALL LIGHT AT BEDSIDE. WILL CONTINUE TO MONITOR.
[2020-01-02 12:00] VITALS: BP 126/72
--- NOTE | 2020-01-02 12:45 | NUR ---
PT EATING LUNCH AT THIS TIME. RESPIRATIONS EVEN AND UNLABORED. BED IN LOW POSITION. CALL LIGHT AT BEDSIDE. WILL CONTINUE TO MONITOR.
--- NOTE | 2020-01-02 13:26 | NUR ---
01/02/20 RD INITIAL ASSESSMENT COMPLETED PLEASE REFER TO NUTRITION ASSESSMENT UNDER CARE ACTIVITY FOR ESTIMATED NUTRITIONAL NEEDS. 1. CONTINUE CARDIAC DIET TOLERATED 2. RD PROVIDED NUTRITION EDUCATION ON WARFARIN AND VITAMIN K FOODS AND CARDIAC DIET. PT ACCEPTED ED. 3. RD TO FOLLOW-UP 5-7 DAYS, LOW RISK [address]
--- NOTE | 2020-01-02 14:25 | NUR ---
PT LAYING DOWN IN BED IN STABLE CONDITION. RESPIRATIONS EVEN AND UNLABORED. BED IN LOW POSITION. CALL LIGHT AT BEDSIDE. WILL CONTINUE TO MONITOR.
[2020-01-02 16:00] VITALS: BP 136/85
--- NOTE | 2020-01-02 16:52 | NUR ---
PT WATCHING TV. PACKING ITEMS TO PREPARE FOR DISCHARGE. RESPIRATIONS EVEN AND UNLABORED. BED IN LOW POSITION. CALL LIGHT AT BEDSIDE. WILL CONTINUE TO MONITOR.
[2020-01-02 17:26] LABS: CREATININE,URINE RANDOM 244 mg/dL (30-125); URINE SODIUM, RANDOM 94 mmol/l (40-220)
[2020-01-02] MEDS ORDERED: LEVO750T2 PO (17:41)
[2020-01-02] MEDS ORDERED: WARF6TAB PO (17:41)
[2020-01-02] MEDS ORDERED: WARFARIN 5 MG TAB ONE (18:12)
[2020-01-02] MEDS ORDERED: WARFARIN 1 MG TAB ONE (18:12)
[2020-01-02] MEDS: WARFARIN 1 MG, WARFARIN 5 MG PO SCH ×2 (18:25)
--- NOTE | 2020-01-02 18:55 | NUR ---
GAVE PT DISCHARGE INSTRUCTIONS AND RX PRESCRIPTION TO TAKE TO HOME PHARMACY. PT VERBALIZED UNDERSTANDING OF INSTRUCTIONS. PICKED UP MEDICATIONS FROM HOSPITAL PHARMACY TO GIVE TO PT. REMOVED IV, LUMEN INTACT. REMOVED ID BAND. SECURITY BROUGHT PT MOTORIZED WHEELCHAIR FROM WAREHOUSE. PT INSPECTED NO DAMAGE TO WHEELCHAIR. ESCORTED PT TO LOBBY IN STABLE CONDITION.
== END 2020-01-02 18:50 | disposition home or self-care (01) | DRG 683 ==
LOC: MED 19:10 → MTU 12-29 01:18
PROVIDERS: ADMIT Preventive Medicine Preventive Medicine/Occupational Environmental Medicine; ATTEND Preventive Medicine Preventive Medicine/Occupational Environmental Medicine
DX: N17.0 Acute kidney failure with tubular necrosis (principal); I13.0 Hypertensive heart and chronic kidney disease with heart failure and stage 1 through stage 4 chronic kidney disease, or unspecified chronic kidney disease; Z68.42 Body mass index [BMI] 45.0-49.9, adult; I50.9 Heart failure, unspecified; N18.9 Chronic kidney disease, unspecified; I25.10 Atherosclerotic heart disease of native coronary artery without angina pectoris; K76.0 Fatty (change of) liver, not elsewhere classified; N20.0 Calculus of kidney; E66.01 Morbid (severe) obesity due to excess calories; I25.2 Old myocardial infarction; Z79.01 Long term (current) use of anticoagulants; Z95.2 Presence of prosthetic heart valve
CPT/HCPCS: 36415; 71250; 76770; 80048; 80053; 80305; 81001; 82550; 82553; 82570; 82948; 83735; 83880; 84100; 84300; 84484; 85025; 85610; 85651; 86140; 87040; 87081; 87086; 93005; 94640; 96374; 99285; J1940; J1956; J2270; J2405; J7030; J7644; Q0092

== ENCOUNTER 2020-02-21 13:21 | Inpatient (IN) | payer OTHER, MEDICAID, SELFPAY ==
[~2020-02-21] VITALS: Ht 162.6 cm; Wt 121.6 kg
[~2020-02-21 13:21] MED LIST changes: +LEVO750T2 PO; +WARF6TAB PO
[2020-02-21 13:27] VITALS: BP 146/93
--- NOTE | 2020-02-21 13:31 | NUR ---
Patient ambulated to bed 1. RN evaluating patient at bedside.
--- NOTE | 2020-02-21 14:04 | NUR ---
C/O FATIGUE WITH S0B WORSENING >1 MONTH--SEEN BY PMD 2 WKS AGO GIVEN ANTIBIOTICS DX BRONCHITIS--NO CHANGE PER PT. BLE PEDAL EDEMA--
[2020-02-21 14:30] LABS: BASOPHILS # (AUTO) 0.1 K/uL (0.00-0.22); BASOPHILS % (AUTO) 0.5 % (0.0-2.0); EOSINOPHILS # (AUTO) 0.1 K/uL (0-0.4); EOSINOPHILS % (AUTO) 0.8 % (0.0-4.0); HEMATOCRIT 42.5 % (36-52); HEMOGLOBIN 13.6 g/dL (12.0-18.0); LYMPHOCYTES # (AUTO) 2.4 K/uL (2.0-11.5); LYMPHOCYTES % (AUTO) 18.5 % (20.5-51.1); MEAN CORPUSCULAR HEMOGLOBIN 26 pg (27-31); MEAN CORPUSCULAR HGB CONC 32 g/dL (33-37); MEAN CORPUSCULAR VOLUME 82.3 fL (80-94); MONOCYTES # (AUTO) 0.7 K/uL (0.8-1.0); MONOCYTES % (AUTO) 5.4 % (1.7-9.3); NEUTROPHILS # (AUTO) 9.8 K/uL (1.8-7.7); NEUTROPHILS % (AUTO) 74.8 % (42.2-75.2); PLATELET COUNT (AUTO) 289 K/uL (140-450); RED BLOOD CELL COUNT(AUTO) 5.16 MIL/uL (4.20-6.10); RED CELL DISTRIBUTION WIDTH 15.6 % (11.6-13.7); WHITE BLOOD COUNT (AUTO) 13.1 K/uL (4.8-10.8)
[2020-02-21 14:46] LABS: ALBUMIN 3.4 g/dL (3.4-5.0); ANION GAP 12.5 (8-16); CREATININE 1.5 mg/dL (0.6-1.3); POTASSIUM 4.5 mmol/L (3.5-5.1); TOTAL BILIRUBIN 0.9 mg/dL (0.0-1.0)
[2020-02-21 14:48] LABS: LACTATE DEHYDROGENASE 320 U/L (85-227)
[2020-02-21 14:57] LABS: PROTHROMBIN TIME 11.2 secs (10.8-13.4)
[2020-02-21 15:09] LABS: C-REACTIVE PROTEIN QUANT 3.1 mg/dL (0.0-0.9)
[2020-02-21 15:23] LABS: RSV NEGATIVE (NEGATIVE)
[2020-02-21] MEDS ORDERED: FUROSEMIDE 40 MG/4 ML VIAL IVP SCH (15:25)
--- NOTE | 2020-02-21 15:26 | NUR ---
NOTIFIED ADMITTING FOR BED 01 ADMITTION
--- NOTE | 2020-02-21 15:45 | NUR ---
[employer]PH[employer] PAVING SUPERINTENDENT HAYES CALLED AND WAITING FOR TO CALL BACK
--- NOTE | 2020-02-21 15:50 | NUR ---
DENIES FEELING SOB AT THIS TIME---HOLDING CONVERSATION WITH ME AT THIS TIME 4-5 WORDS / SPEECH------
[2020-02-21] MEDS ORDERED: HYDROcodone/APAP 7.5/325 MG 1 TAB PO PRN (16:10)
[2020-02-21] MEDS ORDERED: ACETAMINOPHEN 325 MG TAB PO PRN (16:10)
[2020-02-21] MEDS ORDERED: DOCUSATE SODIUM 100 MG GELCAP PO PRN (16:10)
[2020-02-21 16:56] LABS: AMYLASE 60 U/L (25-115); CHOL/HDL RATIO 8.1 (1-4.5); FREE T4 (FREE THYROXINE) 1.33 ng/dL (0.76-1.46); HDL CHOLESTEROL 24 mg/dL (40-60); LDL (CALC) 128 mg/dL (60-100); LIPASE 132 U/L (73-393); MAGNESIUM 1.8 mg/dL (1.8-2.4); PHOSPHORUS 3.7 mg/dL (2.5-4.9); THYROID STIMULATING HORMONE 3.24 uIU/mL (0.34-3.74); TRIGLYCERIDES 218 mg/dL (30-150)
--- NOTE | 2020-02-21 17:04 | NUR ---
Pt transferred to Tele via bed 117 with cele Mcdaniel .
--- NOTE | 2020-02-21 17:05 | NUR ---
PATIENT ARRIVED VIA GURNEY FROM ER. RECEIVED REPORT FROM TON NURSE. PATIENT AWAKE, ALERT AND ORIENTED. INTRODUCED SELF TO PATIENT. PLANS OF CARE DISCUSSED. IV INTACT AND PATENT TO RIGHT HAND. INTRODUCED PATIENT TO ROOM AND ENVIRONMENT. Addendum: 02/21/20 at 1909 by Rae Silvestre RN CORRECTION: PT ALERT AND ORIENTED X4.
--- NOTE | 2020-02-21 17:08 | NUR ---
Pt transferred to Tele via [facility] TO ROOM 117 REPORT GIVEN TO SHANNON MC PT'S ELECTRICAL WHEELCHAIR LEFT IN PT'S ROOM----
[2020-02-21 17:30] VITALS: BP 117/89
[2020-02-21] MEDS ORDERED: WARF3TAB PO (17:35)
[2020-02-21] MEDS ORDERED: WARFARIN 1 MG TAB PO SCH (17:40)
[2020-02-21] MEDS ORDERED: ATOR40TA PO (17:56)
[2020-02-21] MEDS ORDERED: AZITHROMYCIN 250 MG TAB PO SCH (18:04)
--- NOTE | 2020-02-21 18:09 | NUR ---
PATIENT HAS A BLACK POUCH WALLET GIVEN TO HIS FRIEND JEREMI FOR SAFE KEEPING, PER PATIENT REQUEST.
[2020-02-21] MEDS ORDERED: hydrALAZINE 20 MG/ML VIAL IVP PRN (18:20)
[2020-02-21] MEDS: FUROSEMIDE 40 MG/4 ML VIAL IVP SCH (18:32)
[2020-02-21] MEDS ORDERED: WARFARIN 5 MG TAB PO SCH (19:00)
--- NOTE | 2020-02-21 19:00 | NUR ---
PATIENT IN STABLE CONDITION. WILL ENDORSE TO NIGHT NURSE FOR CONTINUITY OF CARE.
--- NOTE | 2020-02-21 19:20 | NUR ---
RECEIVED SHIFT REPORT FROM DAYSHIFT NURSE FOR CONTINUITY OF CARE. PT ATTACHED TO TELE MONITOR NO SIGNS OF DISTRESS NOTED. SAFETY MEASURES IN PLACE AND CALL LIGHT WITHIN REACH
[2020-02-21 20:00] VITALS: BP 114/81
[2020-02-21] MEDS: ATORVASTATIN 20 MG TAB PO SCH (21:10)
--- NOTE | 2020-02-21 21:17 | NUR ---
ADMINISTERED 2100 MEDICATION TO PATIENT PER MD ORDER. PATIENT TOLERATED WELL NO SIGNS OF DISTRESS NOTED. TELE MONITOR ATTACHED AND CALL LIGHT WITHIN REACH.
--- NOTE | 2020-02-21 23:48 | NUR ---
ROUNDING PATIENT ASLEEP EASILY AWAKENED. NO SIGNS OF DISTRESS NOTED. 0000 VITALS OBTAINED AND PT TOLERATED WELL. TELE MONITOR ATTACHED AND CALL LIGHT WITHIN REACH. WILL CONTINUE TO MONITOR
[2020-02-22] VITALS: BP 111/67
--- NOTE | 2020-02-22 02:26 | NUR ---
ROUNDING NO SIGNS OF DISTRESS NOTED. PATIENT RESTING IN BED TELE MONITOR ATTACHED CALL LIGHT WITHIN REACH.
[2020-02-22 04:00] VITALS: BP 112/72
--- NOTE | 2020-02-22 04:33 | NUR ---
MORNING VITALS OBTAINED. PT TOLERATED WELL NO SIGNS OF DISTRESS NOTED. TELE MONITOR ATTACHED, CALL LIGHT WITHIN REACH. WILL CONTINUE TO MONITOR
--- NOTE | 2020-02-22 06:15 | NUR ---
ROUNDING PATIENT AWAKE IN BED WATCHING TV. NO SIGNS OF DISTRESS NOTED. ALL MONITORS ATTACHED AND CALL LIGHT WITHIN REACH. PATIENT REQUESTED MORE TAPE ON HIS IV FOR REINFORCEMENT
[2020-02-22 06:57] LABS: BASOPHILS # (AUTO) 0.1 K/uL (0.00-0.22); BASOPHILS % (AUTO) 0.7 % (0.0-2.0); EOSINOPHILS # (AUTO) 0.1 K/uL (0-0.4); EOSINOPHILS % (AUTO) 1.2 % (0.0-4.0); HEMATOCRIT 42.2 % (36-52); HEMOGLOBIN 13.4 g/dL (12.0-18.0); MEAN CORPUSCULAR HEMOGLOBIN 26 pg (27-31); MEAN CORPUSCULAR HGB CONC 32 g/dL (33-37); MEAN CORPUSCULAR VOLUME 83.2 fL (80-94); MONOCYTES # (AUTO) 0.5 K/uL (0.8-1.0); MONOCYTES % (AUTO) 4.9 % (1.7-9.3); NEUTROPHILS # (AUTO) 8.2 K/uL (1.8-7.7); NEUTROPHILS % (AUTO) 75.2 % (42.2-75.2); PLATELET COUNT (AUTO) 237 K/uL (140-450); RED BLOOD CELL COUNT(AUTO) 5.07 MIL/uL (4.20-6.10); RED CELL DISTRIBUTION WIDTH 15.9 % (11.6-13.7); WHITE BLOOD COUNT (AUTO) 10.9 K/uL (4.8-10.8)
--- NOTE | 2020-02-22 07:09 | NUR ---
ENDORSED PATIENT TO DAYSHIFT NURSE FOR CONTINUITY OF CARE. PATIENT IN STABLE CONDITION
--- NOTE | 2020-02-22 07:10 | NUR ---
SHIFT REPORT RECEIVED FROM CTC OPERATOR NURSE. PT IS AWAKE AND RESPONSIVE. NO DISTRESS NOTED. CALL LIGHT IN REACH. WILL CONTINUE TO MONITOR.
--- NOTE | 2020-02-22 07:10 | NUR ---
PT IS IN BED AWAKE AND RESPONSIVE. NO DISTRESS NOTED. NO COMPLAINS OF PAIN. SAFETY MEASURES IN PLACE. CALL LIGHT IN REACH. WILL CONTINUE TO MONITOR.
[2020-02-22 07:38] LABS: ALBUMIN 3.1 g/dL (3.4-5.0); ANION GAP 13.2 (8-16); CARBON DIOXIDE 28.5 mmol/L (21-32); CREATININE 1.6 mg/dL (0.6-1.3); MAGNESIUM 1.9 mg/dL (1.8-2.4); PHOSPHORUS 4.3 mg/dL (2.5-4.9); POTASSIUM 4.7 mmol/L (3.5-5.1); TOTAL BILIRUBIN 0.8 mg/dL (0.0-1.0)
[2020-02-22 08:00] VITALS: BP 99/73
[2020-02-22] MEDS: FUROSEMIDE 40 MG/4 ML VIAL IVP SCH ×2 (08:39→17:00)
[2020-02-22] MEDS: ASCORBIC ACID 500 MG TAB PO SCH (08:39)
[2020-02-22] MEDS: BENAZEPRIL 20 MG TAB PO SCH ×2 (08:40→09:00)
[2020-02-22] MEDS: ZINC SULF 220 MG CAP PO SCH (08:40)
--- NOTE | 2020-02-22 09:00 | NUR ---
BENAZEPRIL NOT GIVEN DUE TO LOW BP. 99/73
--- NOTE | 2020-02-22 09:00 | NUR ---
ASSESSMENT DONE ON PATIENT. PT STOOD UP BE BEDSIDE TO CHANGE. NO DISTRESS NOTED. VITAL SIGNS WERE NORMAL NOTED WITH BLOOD PRESSURE 99/73. WILL CONTINUE TO MONITOR. CALL LIGHT IN REACH.
--- NOTE | 2020-02-22 09:04 | NUR ---
PATIENT HAS BEEN SCREENED AND CATEGORIZED MODERATE NUTRITION RISK. PATIENT WILL BE SEEN WITHIN 3-5 DAYS OF ADMISSION. 02/24/20 02/26/[address]
[2020-02-22 10:55] LABS: PROTHROMBIN TIME 11.4 secs (10.8-13.4)
[2020-02-22 12:00] VITALS: BP 98/54
--- NOTE | 2020-02-22 12:52 | NUR ---
FNS CONSULT RECEIVED FOR CARDIAC DIET EDUCATION. RD WILL COMPLETE NUTRITIONAL ASSESSMENT WITHIN 1-2 DAYS THAT CONSULT WAS RECEIVED. SANDIP [address]
[2020-02-22] MEDS ORDERED: METOPROLOL SUCCINATE 50 MG TABER PO SCH (13:30)
--- NOTE | 2020-02-22 13:30 | NUR ---
ASSESSMENT DONE ON PATIENT. NO DISTRESS NOTED. WILL CONTINUE TO MONITOR. CALL LIGHT IN REACH.
--- NOTE | 2020-02-22 13:42 | NUR ---
DC PLANNIN YRS OLD MALE PATIENT WAS ADMITTED FROM [facility]. PT HAS A HX OF HTN, HLD OBESITY AND HEART FAILURE WITH PROSTHETIC AORTIC VALVE , CXR SHOWED BIBASILAR ATELECTASIS . COVID -19 PENDING, STARTED ON ZINC TABLETS IVF, IV ABX ROCEPHIN AND AZITHROMYCIN. PULMO AND ID CONSULTED DC PLAN PER MD'S RECOMMENDATIONS .CM TO FOLLOW. Addendum: 02/23/20 at 1105 by Maria C Santana CM DC PLANNING: COVID TEST NEGATIVE .SEEN BY PULMO DR MOORE ,RECOMMENDED TITRATE FIO2 MAINTAIN O2 SAT GREATER THAN 90% , ROAD ROLLER OPERATOR CONTINUE WITH LASIX AND CARDIAC MEDS, ID DR RAMON CONTINUE EMPIRIC COVERAGE WITH AZITHROMYCIN AND ROCEPHIN F/U WITH SPUTUM GRAM STAIN AND CULTURE. DC PLAN PER MD'S RECOMMENDATIONS. CM TO FOLLOW Addendum: 02/24/20 at 1356 by Maria C Santana CM DC PLANNING: SEEN BY CARDIOLOGY TECHNOLOGIST DR CAMRYN HILLS JM DIFFERENTIAL INCLUDES PRE-RENAL IN SETTING OF CHF WELL ATN DUE TO HYPERTENSION , CONTINUE WITH DIURESIS IV ABX WITH CEFTRIAXONE AND AZITHROMYCIN. DC PLAN TO GO HOME WHEN STABLE CM TO FOLLOW.
--- NOTE | 2020-02-22 13:55 | NUR ---
METOPROLOL NOT GIVEN DUE TO LOW BP. 98/54.
--- NOTE | 2020-02-22 13:55 | NUR ---
METOPROLOL NOT GIVEN BLOOD PRESSURE WERE NOT WITH PARAMETERS. BP WAS 98/54
[2020-02-22 16:00] VITALS: BP 92/72
[2020-02-22] MEDS ORDERED: WARFARIN 2.5 MG TAB PO SCH (17:00)
--- NOTE | 2020-02-22 17:30 | NUR ---
LASIX NOT GIVEN. BLOOD PRESSURES NOT WITHIN PARAMETERS.
--- NOTE | 2020-02-22 17:30 | NUR ---
PT IS SITTING BY BED SIDE. NO DISTRESS NOTED.COMADIN GIVEN. PT EDUCATION GIVEN. SAFETY MEASURES IN PLACE. PT WAS GIVEN TO PATIENT. PHONE AND CALL LIGHT IN REACH.
[2020-02-22 17:31] LABS: APPEARANCE,URINE CLEAR (CLEAR); BILIRUBIN,URINE NEGATIVE (NEGATIVE); BLOOD, URINE NEGATIVE (NEGATIVE); COLOR,URINE YELLOW (YELLOW); LEUKOCYTE ESTERASE ,URINE NEGATIVE (NEGATIVE); NITRITE, URINE NEGATIVE (NEGATIVE); UGLUCOSE NEGATIVE (NEGATIVE)
[2020-02-22 17:39] LABS: BARBITURATE, URINE NEGATIVE ng/ml (NEG <=200); BENZODIAZEPINE, URINE NEGATIVE ng/mL (NEG <=200); CANNABINOID, URINE NEGATIVE ng/mL (NEG <=50); COCAINE, URINE NEGATIVE ng/mL (NEG <=300); OPIATE, URINE NEGATIVE ng/mL (NEG <=2000); PHENCYCLIDINE SCREEN,URINE NEGATIVE ng/mL (NEG <=25)
[2020-02-22] MEDS: AZITHROMYCIN 250 MG TAB PO SCH (17:41)
--- NOTE | 2020-02-22 19:24 | NUR ---
SHIFT REPORT GIVEN TO RING SORTER NURSE. PT IS STABLE. CALL LIGHT IN REACH.
--- NOTE | 2020-02-22 19:26 | NUR ---
RECEIVED BEDSIDE REPORT FROM AM SHIFT NURSE. PATIENT IS LYING IN BED, LEFT SIDE LYING, RESTING WITH EYES CLOSED. NO SOB OR DISTRESS NOTED. ON 2LPM VIA NC. RESPIRATIONS EVEN AND UNLABORED. IV ACCESS ON RIGHT AC 22 GAUGE, PATENT, INTACT AND INFUSING WELL. INITIAL ASSESSMENT DONE, SKIN IS INTACT. BED IN LOW, BED LOCKED. SAFETY MEASURES IN PLACE. CALL LIGHT PLACED WITHIN PATIENT REACH. WILL CONTINUE TO MONITOR PATIENT.
[2020-02-22] MEDS: ATORVASTATIN 20 MG TAB PO SCH (21:02)
[2020-02-22 21:38] VITALS: BP 113/83
--- NOTE | 2020-02-22 21:59 | NUR ---
ROUNDS DONE. PATIENT RESTING WITH EYES CLOSED. VISIBLE CHEST RISE AND FALL NOTED. CALL LIGHT WITHIN PATIENT REACH. WILL CONTINUE TO MONITOR PATIENT.
[2020-02-23 00:15] VITALS: BP 115/67
--- NOTE | 2020-02-23 00:15 | NUR ---
VITALS DONE. NO SOB OR DISTRESS NOTED. PATIENT RESTING WITH EYES CLOSED. WILL CONTINUE TO MONITOR PATIENT.
--- NOTE | 2020-02-23 03:00 | NUR ---
ROUNDS DONE. VISIBLE CHEST RISE AND FALL NOTED. WILL CONTINUE TO MONITOR PATIENT.
[2020-02-23 04:15] VITALS: BP 98/68
--- NOTE | 2020-02-23 05:53 | NUR ---
PATIENT IS STATING THAT THE TEMPERATURE IN THE ROOM IS HOT. CHARGE NURSE MADE AWARE AND WILL ENDORSE TO AM SHIFT TO TRY TO MOVE PATIENT TO ANOTHER ROOM.
--- NOTE | 2020-02-23 06:15 | NUR ---
LAB CALLED WITH NEGATIVE COVID-19 RESULT
--- NOTE | 2020-02-23 06:30 | NUR ---
PATIENT MOVED TO ROOM 119B VIA ELECTRIC SCOOTER. BELONGINGS TRANSFERRED WITH PATIENT. PATIENT STATES HE NEVER RECEIVED HIS ELECTRIFIER OPERATOR THAT HIS FRIEND BROUGHT TO HIM WHEN HE WAS ADMITTED. WILL ENDORSE TO AM SHIFT NURSE TO FOLLOW UP.
--- NOTE | 2020-02-23 06:57 | NUR ---
PATIENT IS RESTING COMFORTABLY IN BED. NO SOB OR DISTRESS NOTED. CALL LIGHT WITHIN PATIENT REACH. WILL ENDORSE TO AM SHIFT NURSE FOR CONTINUITY OF CARE.
--- NOTE | 2020-02-23 07:10 | NUR ---
RECEIVED REPORT FROM NIGHT NURSE PT IS SITTING, AAOX4 ON O2 AT 2LPM VIA NC. PT IS STABLE NO DISTRESS NOTED. SAFETY MEASURES IN PLACE AND CALL LIGHT WITHIN REACH. WILL CONTINUE TO MONITOR.
[2020-02-23 07:12] LABS: EOSINOPHILS # (AUTO) 0.2 K/uL (0-0.4); MEAN CORPUSCULAR HEMOGLOBIN 26 pg (27-31); PLATELET COUNT (AUTO) 250 K/uL (140-450)
[2020-02-23 07:31] LABS: BASOPHILS # (AUTO) 0.1 K/uL (0.00-0.22); BASOPHILS % (AUTO) 0.6 % (0.0-2.0); EOSINOPHILS % (AUTO) 1.6 % (0.0-4.0); HEMATOCRIT 43.2 % (36-52); HEMOGLOBIN 13.6 g/dL (12.0-18.0); LYMPHOCYTES # (AUTO) 2.8 K/uL (2.0-11.5); LYMPHOCYTES % (AUTO) 19.4 % (20.5-51.1); MEAN CORPUSCULAR HGB CONC 32 g/dL (33-37); MEAN CORPUSCULAR VOLUME 82.7 fL (80-94); MONOCYTES # (AUTO) 0.6 K/uL (0.8-1.0); MONOCYTES % (AUTO) 4.2 % (1.7-9.3); NEUTROPHILS # (AUTO) 10.6 K/uL (1.8-7.7); NEUTROPHILS % (AUTO) 74.2 % (42.2-75.2); RED BLOOD CELL COUNT(AUTO) 5.22 MIL/uL (4.20-6.10); WHITE BLOOD COUNT (AUTO) 14.3 K/uL (4.8-10.8)
[2020-02-23 08:00] VITALS: BP 123/75
[2020-02-23 08:16] LABS: ALBUMIN 3.2 g/dL (3.4-5.0); ANION GAP 12.5 (8-16); CREATININE 1.7 mg/dL (0.6-1.3); MAGNESIUM 1.8 mg/dL (1.8-2.4); POTASSIUM 4.5 mmol/L (3.5-5.1); TOTAL BILIRUBIN 0.8 mg/dL (0.0-1.0)
[2020-02-23] MEDS: METOPROLOL SUCCINATE 50 MG TABER PO SCH (08:45)
[2020-02-23] MEDS: ZINC SULF 220 MG CAP PO SCH (08:45)
[2020-02-23] MEDS: ASCORBIC ACID 500 MG TAB PO SCH (08:45)
[2020-02-23] MEDS: FUROSEMIDE 40 MG/4 ML VIAL IVP SCH ×2 (08:45→17:00)
--- NOTE | 2020-02-23 08:51 | NUR ---
MEDICATIONS DUE GIVEN CHECK VITAL SIGNS PRIOR TO BP MEDICATIONS. BP 123/75 GA 117. SAFETY MEASURES IN PLACE DENIES PAIN. WILL CONTINUE TO MONITOR.
--- NOTE | 2020-02-23 10:24 | NUR ---
WASH HOUSE WORKER NOTE: SW WAS UNABLE TO MEET WITH PATIENT AT BEDSIDE DUE TO MEDICAL CONDITION. SW CONTACTED [facility] [phone] AND PATIENT'S SISTER DYLAN CHAVEZ [phone] AND LEFT VM. CLARICE WILL FOLLOW UP.
--- NOTE | 2020-02-23 11:30 | NUR ---
CHECK VITAL SIGNS AT THIS TIME. PT IS SLEEPING AND NO DISTRESS NOTED. DENIES PAIN.SAFETY MEASURES IN PLACE AND CALL LIGHT WITHIN REACH.WILL CONTINUE TO MONITOR.
[2020-02-23 12:00] VITALS: BP 102/65
--- NOTE | 2020-02-23 12:22 | NUR ---
02/23/20 RD INITIAL ASSESSMENT COMPLETED PLEASE REFER TO NUTRITION ASSESSMENT UNDER CARE ACTIVITY FOR ESTIMATED NUTRITIONAL NEEDS. 1. CONTINUE CARDIAC DIET WITH FLD RESTRICTION OF 1.5 L/DAY TOLERATED 2. RD PROVIDED PT WITH NUTRITION EDUCATION ON WARFARIN AND VITAMIN K AND CARDIAC DIET. PT ACCEPTED 3. RD TO FOLLOW-UP 3-5 DAYS, MODERATE RISK SANDIP METZ RD
--- NOTE | 2020-02-23 13:47 | NUR ---
SEARCH ENGINE OPTIMIZATION ANALYST NOTE: Basic Screen: Yes High Risk DC Screen [place]: DYLAN Villegas Relationship: SISTER Pre-Admission Living Arrangements: Other Other: [facility] Prior ADL Needs Assistance Current Home Health Name/Tel: N/A Current DME/02 Name/Tel: [facility], [facility] Current Hospice Name/Tel: N/A Current Dialysis Name/Tel: N/A Healthcare Decision Maker: Patient Advance Directive No Physician Orders for Life Sustaining Treatment Form No Patient/Family Have Educational Needs No Discipline: Case Mgt/Social Svcs Tentative Discharge Plan/Destination: Other Other: [facility] Will require assistance post discharge: No Referred to Printer Floor Covering Assistant: No Tentative Discharge Plan Summary: PATIENT IS A 54-YEAR-OLD MALE ADMITTED FOR R/O COVID. PATIENT HAS PMHX OF HYPERTENSION, HEART FAILURE W/ PROSTHETIC HEART VALVE, HYPERLIPEDEMIA, AND OBESITIY. PATIENT WAS ADMITTED FROM [facility]. SW MET WITH PATIENT AT BEDSIDE TO VERIFY DEMOGRAPHICS. PATIENT CONFIRMED THAT HE WAS A RESIDENT OF [facility]. PATIENT REPORTED THAT HE NEEDS ASSISTANCE WITH SOME ADLS BUT IS ABLE TO AMBULATE AT TIMES. PATIENT IS ALERT/ORIENTED. PATIENT REPORTS NO MENTAL HEALTH HISTORY AND NO SUBSTANCE ABUSE HISTORY. TENTATIVE DISCHARGE PLAN IS TO RETURN TO [facility]. NO FURTHER NEEDS IDENTIFIED. Signature: EARL BEARD Date: February 23, 2020 Time: 13:46
--- NOTE | 2020-02-23 14:00 | NUR ---
PT IS SLEEPING AND NO DISTRESS NOTED. DENIES PAIN. WILL CONTINUE TO MONITOR
[2020-02-23 16:00] VITALS: BP 124/85
[2020-02-23] MEDS ORDERED: WARFARIN 5 MG TAB ONE (16:47)
[2020-02-23] MEDS ORDERED: WARFARIN 1 MG TAB ONE (16:47)
--- NOTE | 2020-02-23 17:00 | NUR ---
CHECK VITAL SIGNS BP 83/54 REPORTED TO MD. POWELL NOT GIVEN PER DOCTORS ORDER. WILL CONTINUE TO MONITOR.
[2020-02-23] MEDS: WARFARIN 5 MG, WARFARIN 1 MG PO SCH ×2 (17:07)
[2020-02-23] MEDS: AZITHROMYCIN 250 MG TAB PO SCH (17:49)
--- NOTE | 2020-02-23 19:05 | NUR ---
ENDORSED TO NIGHT NURSE PT IS SITTING AND ALERT. PT IS STABLE
--- NOTE | 2020-02-23 19:06 | NUR ---
RECEIVED BEDSIDE REPORT FROM AM SHIFT NURSE. PATIENT SITTING ON BED. NO SOB OR DISTRESS NOTED. ON RA . RESPIRATIONS EVEN AND UNLABORED. IV ACCESS ON RIGHT AC 22 GAUGE TKO, PATENT, INTACT AND INFUSING WELL. INITIAL ASSESSMENT DONE, SKIN IS INTACT. BED IN LOW, BED LOCKED. SAFETY MEASURES IN PLACE. CALL LIGHT PLACED WITHIN PATIENT REACH. WILL CONTINUE TO MONITOR PATIENT.
[2020-02-23 20:00] VITALS: BP 103/60
--- NOTE | 2020-02-23 20:00 | NUR ---
VITALS DONE. NO SOB OR DISTRESS NOTED. PATIENT RESTING WITH EYES CLOSED. WILL CONTINUE TO MONITOR PATIENT.
--- NOTE | 2020-02-23 21:20 | NUR ---
PT SLEEPING NO RESPIRATORY DISTRESS, DENIES PAIN, WILL CONTINUE TO MONITOR
[2020-02-23] MEDS: ATORVASTATIN 20 MG TAB PO SCH (22:26)
--- NOTE | 2020-02-23 23:20 | NUR ---
TELEMONITORING ON PATIENT CHECKED THE LEADS, PLACED THE LEADS BACK AND CHANGED THE LEAD STICKERS ON THE PATIENT, PATIENT COOPERATIVE.
[2020-02-24] VITALS: BP 93/51
--- NOTE | 2020-02-24 01:46 | NUR ---
CHECKED ON PATIENT, PT SLEEPING, CALLED HIS NAME AND PT RESPONDED, EASILY AWAKENED BY VERBAL STIMULI, WILL CONTINUE TO MONITOR
[2020-02-24 04:00] VITALS: BP 93/50
--- NOTE | 2020-02-24 05:48 | NUR ---
PATIENT REFUSED LABS THIS AM PER MANAGER OF INTERNAL
--- NOTE | 2020-02-24 07:00 | NUR ---
TALKED TO PAT REGARDING REFUSAL OF LABS; AND PT SAID HE IS OK FOR A BLOOD DRAW, BUT WANTS IT TO BE DONE LATER IN THE AM. AND NOT AT 0500 WHEN HE IS SLEEPING
--- NOTE | 2020-02-24 07:15 | NUR ---
INFORMED BUDDY OF LAB, THAT PT WANTS TO BE DRAWN
--- NOTE | 2020-02-24 07:20 | NUR ---
ENDORSED TO AM SHIFT KARISHMA,PT NOT IN RESPIRATORY DISTRESS, PT NO COMPLAINTS OF PAIN PT IS IN STABLE CONDITION, FOR BLOOD DRAW.
--- NOTE | 2020-02-24 07:22 | NUR ---
RECEIVED REPORT FROM NIGHT NURSE PT IS SITTING, NO DISTRESS NOTED AND DENIES PAIN.PT IS HAPPY. SAFETY MEASURES IN PLACE, CALL LIGHT WITHIN REACH. WILL CONTINUE TO MONITOR.
--- NOTE | 2020-02-24 07:50 | NUR ---
PT BP WAS LOW, CHECKED AND ASSESSED PT. BP 122/77 MMHG ON LEFT ARM, BP 100/22 MMHG ON RIGHT ARM. INFORMED DR JSOÉ AND ORDERED TO CHECK BP AFTER AN HOUR. WILL CONTINUE TO MONITOR.
[2020-02-24 08:00] VITALS: BP 120/83
[2020-02-24 08:07] LABS: PROTHROMBIN TIME 19.4 secs (10.8-13.4)
--- NOTE | 2020-02-24 09:00 | NUR ---
CHECK VITAL SIGNS BP 120/83 LA 113 ON THE LEFT ARM, BP 131/93,LA 42 ON THE RIGHT ARM. INFORMED DR JOSÉ. DUE MEDICATIONS GIVEN. WILL CONTINUE TO MONITOR.
[2020-02-24] MEDS: METOPROLOL SUCCINATE 50 MG TABER PO SCH (09:12)
[2020-02-24] MEDS: ASCORBIC ACID 500 MG TAB PO SCH (09:12)
[2020-02-24] MEDS: ZINC SULF 220 MG CAP PO SCH (09:13)
[2020-02-24] MEDS: FUROSEMIDE 40 MG/4 ML VIAL IVP SCH ×2 (09:13→16:23)
[2020-02-24 12:00] VITALS: BP 105/78
--- NOTE | 2020-02-24 12:00 | NUR ---
CHECK VITAL SIGN AND PT BP WHEN LYING DOWN IS LOW BUT WHEN PT IS SITTING BP 105/78 ND 105. PT VERBALIZES FEELING TIRED AND WILL CONTINUE TO MONITOR.
[2020-02-24] MEDS ORDERED: ALBUTEROL SULFATE/IPRATROPIU 3 ML SOL IH PRN (14:10)
[2020-02-24 16:00] VITALS: BP 115/75
[2020-02-24] MEDS ORDERED: WARFARIN 1 MG TAB ONE (16:14)
[2020-02-24] MEDS ORDERED: WARFARIN 5 MG TAB ONE (16:15)
[2020-02-24] MEDS: WARFARIN 5 MG, WARFARIN 1 MG PO SCH ×2 (16:26)
--- NOTE | 2020-02-24 16:35 | NUR ---
MEDICATIONS DUE GIVEN. VITAL SIGNS CHECKED PRIOR TO MEDICATION. BP 115/75 KS: 105. WILL CONTINUE TO MONITOR.
[2020-02-24] MEDS: AZITHROMYCIN 250 MG TAB PO SCH (17:42)
--- NOTE | 2020-02-24 17:47 | NUR ---
MEDICATIONS DUE GIVEN. SAFETY MEASURES IN PLACE AND CALL LIGHT WITHIN REACH. WILL CONTINUE TO MONITOR
--- NOTE | 2020-02-24 19:10 | NUR ---
ENDORSED PT TO NIGHT NURSE PT IS STABLE.
--- NOTE | 2020-02-24 19:15 | NUR ---
RECEIVED BEDSIDE REPORT FROM AM SHIFT RN FOR PT'S CONTINUITY OF CARE. PT IS AAOX4, ON 2L O2 VIA NC, ON VOCATIONAL HORTICULTURE INSTRUCTOR, HAS RIGHT HAND 20G INFUSING WITH NS AT 5ML/HR, SKIN IS INTACT. PT C/O SHORTNESS OF BREATH, RT CAME AT BEDSIDE FOR BREATHING TREATMENT. EXPLAINED TO PT THE SENIOR ORACLE DBA ROUTINE, PT VERBALIZED UNDERSTANDING. SAFETY MEASURES IN PLACE, AND CALL LIGHT IS WITHIN REACH. ENCOURAGED PT TO CHANGE POSITIONS AND SIT UP AT HIGH SALGUERO'S FOR EASE OF BREATHING. SAFETY MEASURES IN PLACE, AND CALL LIGHT IS WITHIN REACH. WILL MONITOR PT THROUGHOUT SHIFT.
[2020-02-24] MEDS: ALBUTEROL SULFATE/IPRATROPIU 3 ML SOL IH SCH (19:19)
[2020-02-24 20:00] VITALS: BP 103/69
[2020-02-24] MEDS: ATORVASTATIN 20 MG TAB PO SCH (21:19)
--- NOTE | 2020-02-24 21:19 | NUR ---
ADMINISTERED SCHEDULED MEDICATION ORDERED. PT TELE LEADS OFF, PT STATED LEADS ALWAYS COME OFF DT EXCESSIVE SWEATING. PT MADE COMFORTABLE, WILL INITIATE NEW MEASURES FOR TROLLEY CAR OPERATOR ADHERENCE.
--- NOTE | 2020-02-24 21:30 | NUR ---
PT'S LEADS ADHERING BETTER ON PT'S SKIN. ENCOURAGED PT TO DRY UP SKIN USING WASHCLOTH WHEN NEEDED. PT VERBALIZED UNDERSTANDING. WILL CONTINUE TO MONITOR PT.
--- NOTE | 2020-02-24 22:00 | NUR ---
FOUND PT WITHOUT O2 NC. REMINDED PT THE IMPORTANCE OF ADHERENCE TO O2 REGIMEN. PT VERBALIZED UNDERSTANDING.
--- NOTE | 2020-02-24 23:00 | NUR ---
PT ASLEEP WITH NO SIGNS OF DISTRESS OR DISCOMFORT. WILL CONTINUE TO MONITOR PT.
[2020-02-25] VITALS: BP 120/90
--- NOTE | 2020-02-25 01:10 | NUR ---
PT ASLEEP WITH NO SIGNS OF DISTRESS. NASAL CANNULA STILL IN PLACE. WILL CONTINUE TO MONITOR.
[2020-02-25 04:00] VITALS: BP 98/66
--- NOTE | 2020-02-25 04:00 | NUR ---
PT ASLEEP, VS CHECKED AND CHARTED. NO SIGNS OF DISTRESS OR DISCOMFORT NOTED. WILL CONTINUE TO MONITOR PT.
--- NOTE | 2020-02-25 06:31 | NUR ---
PT ASLEEP ON RIGHT SIDE, O2 NASAL CANNULA ON, NO SIGNS OF DISTRESS OR DISCOMFORT NOTED. SAFETY MEASURES IN PLACE AND CALL LIGHT IS WITHIN REACH. WILL ENDORSE PT TO AM SHIFT RN FOR PT'S CONTINUITY OF CARE.
[2020-02-25] MEDS: ALBUTEROL SULFATE/IPRATROPIU 3 ML SOL IH SCH ×2 (07:00→13:00)
--- NOTE | 2020-02-25 07:15 | NUR ---
RECEIVED REPORT FROM NIGHT NURSE. PATIENT IS AWAKE, ALERT AND ORIENTED X4. NO S/S OF DISTRESS NOTED. LAB AT BEDSIDE. PLANS OF CARE DISCUSSED. O2 ON @ 2L NC. IV INTACT AND PATENT TO RIGHT HAND SL. SAFETY MEASURES IN PLACE. CALL LIGHT WITHIN REACH.
[2020-02-25 07:38] LABS: BASOPHILS # (AUTO) 0.1 K/uL (0.00-0.22); BASOPHILS % (AUTO) 1.1 % (0.0-2.0); EOSINOPHILS # (AUTO) 0.1 K/uL (0-0.4); EOSINOPHILS % (AUTO) 0.9 % (0.0-4.0); HEMATOCRIT 43.5 % (36-52); HEMOGLOBIN 13.8 g/dL (12.0-18.0); LYMPHOCYTES # (AUTO) 2.4 K/uL (2.0-11.5); LYMPHOCYTES % (AUTO) 18.8 % (20.5-51.1); MEAN CORPUSCULAR HEMOGLOBIN 26 pg (27-31); MEAN CORPUSCULAR HGB CONC 32 g/dL (33-37); MEAN CORPUSCULAR VOLUME 82.4 fL (80-94); MONOCYTES # (AUTO) 0.6 K/uL (0.8-1.0); MONOCYTES % (AUTO) 4.3 % (1.7-9.3); NEUTROPHILS # (AUTO) 9.7 K/uL (1.8-7.7); NEUTROPHILS % (AUTO) 74.9 % (42.2-75.2); PLATELET COUNT (AUTO) 227 K/uL (140-450); RED BLOOD CELL COUNT(AUTO) 5.27 MIL/uL (4.20-6.10); WHITE BLOOD COUNT (AUTO) 12.9 K/uL (4.8-10.8)
[2020-02-25 08:00] VITALS: BP 142/67
[2020-02-25 08:11] LABS: ALBUMIN 3.2 g/dL (3.4-5.0); ANION GAP 13.7 (8-16); CARBON DIOXIDE 29.2 mmol/L (21-32); CREATININE 1.7 mg/dL (0.6-1.3); MAGNESIUM 1.9 mg/dL (1.8-2.4); PHOSPHORUS 3.9 mg/dL (2.5-4.9); POTASSIUM 3.9 mmol/L (3.5-5.1); TOTAL BILIRUBIN 0.8 mg/dL (0.0-1.0)
[2020-02-25 09:27] LABS: PROTHROMBIN TIME 20.6 secs (10.8-13.4)
--- NOTE | 2020-02-25 09:30 | NUR ---
PATIENT ALERT, ORIENTED X4. NO S/S OF DISTRESS NOTED. ABLE TO MAKE NEEDS KNOWN.
[2020-02-25] MEDS: FUROSEMIDE 40 MG/4 ML VIAL IVP SCH (09:54)
[2020-02-25] MEDS: METOPROLOL SUCCINATE 50 MG TABER PO SCH (09:55)
[2020-02-25] MEDS: ASCORBIC ACID 500 MG TAB PO SCH (09:55)
[2020-02-25] MEDS: ZINC SULF 220 MG CAP PO SCH (09:55)
[2020-02-25] MEDS ORDERED: METO50TE2 PO (10:08)
[2020-02-25] MEDS ORDERED: FURO-570 PO (10:21)
[2020-02-25 12:00] VITALS: BP 110/67
--- NOTE | 2020-02-25 12:30 | NUR ---
PT EATING LUNCH. NO DISTRESS NOTED. PATIENT WILL BE DISCHARGE TODAY.
--- NOTE | 2020-02-25 12:55 | NUR ---
DISCHARGE PLANNING: CLARICE CONTACTED [facility] [phone] REGARDING TRANSPORTATION FOR PATIENT. CLARICE LEFT . CLARICE WILL FOLLOW UP. Addendum: 02/25/20 at 1546 by Sean GALVAN CLARICE CONTACTED [facility] AND SPOKE TO SENDY. PER SENDY PATIENT DOES NOT MEET MEDICAL NECESSITY TO RECEIVE TRANSPORTATION THROUGH [facility]. CLARICE WILL FOLLOW UP. Addendum: 02/25/20 at 1553 by Sean GALVAN CLARICE CONTACTED [facility] AND SPOKE TO ELIE[facility]ER [phone] AND ARRANGED FOR TRANSPORTATION AT 1700. NURSE WAS NOTIFIED.
--- NOTE | 2020-02-25 13:33 | NUR ---
WENT TO PTS ROOM TO GIVE BREATHING TX PT REFUSED HE STATED HE WANTS TO SLEEP NO SIGNS OF DISTRESS OR SOB
--- NOTE | 2020-02-25 14:30 | NUR ---
ROUNDS MADE. PATIENT ALERT AND ORIENTED X4. NO S/S OF DISTRESS NOTED.
[2020-02-25 16:30] VITALS: BP 148/75
--- NOTE | 2020-02-25 17:30 | NUR ---
DISCHARGE TO [facility]. PICKED UP BY [facility]IA [facility]. ALL DISCHARGE INSTRUCTIONS AND BELONGINGS GIVEN. IV REMOVED AND ID BAND REMOVED. PT STABLE. POWER WHEEL CHAIR SENT WITH PATIENT.
== END 2020-02-25 17:30 | disposition home or self-care (01) | DRG 871 ==
LOC: EEVIPCON 13:21 → MED 13:21 → MTU 16:07
PROVIDERS: ADMIT General Practice; ATTEND General Practice
DX: A41.9 Sepsis, unspecified organism (principal); J18.9 Pneumonia, unspecified organism; I21.A1 Myocardial infarction type 2; I50.43 Acute on chronic combined systolic (congestive) and diastolic (congestive) heart failure; N17.0 Acute kidney failure with tubular necrosis; I13.0 Hypertensive heart and chronic kidney disease with heart failure and stage 1 through stage 4 chronic kidney disease, or unspecified chronic kidney disease; J98.11 Atelectasis; Z68.42 Body mass index [BMI] 45.0-49.9, adult; E44.0 Moderate protein-calorie malnutrition; I42.9 Cardiomyopathy, unspecified; R65.10 Systemic inflammatory response syndrome (SIRS) of non-infectious origin without acute organ dysfunction; I35.1 Nonrheumatic aortic (valve) insufficiency; N18.3 Chronic kidney disease, stage 3 (moderate); E78.5 Hyperlipidemia, unspecified; K76.0 Fatty (change of) liver, not elsewhere classified; E66.9 Obesity, unspecified; Z95.2 Presence of prosthetic heart valve; Z79.899 Other long term (current) drug therapy; Z79.01 Long term (current) use of anticoagulants; Z03.818 Encounter for observation for suspected exposure to other biological agents ruled out
CPT/HCPCS: 36415; 36600; 71045; 80053; 80305; 81003; 82150; 82550; 82728; 82803; 83036; 83605; 83615; 83690; 83735; 83880; 84100; 84439; 84443; 84484; 85025; 85379; 85384; 85610; 85651; 85730; 86140; 87040; 87081; 87086; 87420; 87804; 93005; 93970; 94640; 97112; 97116; 97161-GP; 97530; 99291; G0482; J0696; J1940; J7030; J7060; Q0092

== ENCOUNTER 2020-03-02 16:48 | Inpatient (IN) | payer OTHER, MEDICAID, SELFPAY ==
[~2020-03-02] VITALS: Ht 160 cm; Wt 122.0 kg
[~2020-03-02 16:48] MED LIST changes: +ATOR40TA PO; +FURO-570 PO; -LEVO750T2 PO; +METO50TE2 PO; +WARF3TAB PO; -WARF6TAB PO
[2020-03-02 16:52] VITALS: BP 96/69
[2020-03-02] MEDS ORDERED: FAMO-90 PO (17:02)
[2020-03-02] MEDS ORDERED: LISI-420 PO (17:02)
[2020-03-02] MEDS ORDERED: WARF3TAB PO (17:02)
[2020-03-02] MEDS ORDERED: ALBU0.0912 IH (17:02)
[2020-03-02] MEDS ORDERED: ACETAMINOPHEN EXTRA STRENGTH 500 MG TAB ONE (18:14)
[2020-03-02] MEDS ORDERED: ACETAMINOPHEN EXTRA STRENGTH 500 MG TAB PO ONE (18:15)
[2020-03-02 18:22] LABS: BASOPHILS # (AUTO) 0.2 K/uL (0.00-0.22); BASOPHILS % (AUTO) 1.8 % (0.0-2.0); EOSINOPHILS # (AUTO) 0.1 K/uL (0-0.4); HEMOGLOBIN 12.6 g/dL (12.0-18.0); LYMPHOCYTES # (AUTO) 2.6 K/uL (2.0-11.5); LYMPHOCYTES % (AUTO) 21.1 % (20.5-51.1); MEAN CORPUSCULAR HEMOGLOBIN 26 pg (27-31); MEAN CORPUSCULAR HGB CONC 32 g/dL (33-37); MEAN CORPUSCULAR VOLUME 83.1 fL (80-94); MONOCYTES # (AUTO) 0.8 K/uL (0.8-1.0); MONOCYTES % (AUTO) 6.5 % (1.7-9.3); NEUTROPHILS # (AUTO) 8.7 K/uL (1.8-7.7); NEUTROPHILS % (AUTO) 69.6 % (42.2-75.2); PLATELET COUNT (AUTO) 250 K/uL (140-450); RED BLOOD CELL COUNT(AUTO) 4.82 MIL/uL (4.20-6.10); RED CELL DISTRIBUTION WIDTH 16.3 % (11.6-13.7); WHITE BLOOD COUNT (AUTO) 12.5 K/uL (4.8-10.8)
[2020-03-02 18:40] LABS: ALBUMIN 3.4 g/dL (3.4-5.0); ANION GAP 15.3 (8-16); CARBON DIOXIDE 27.2 mmol/L (21-32); CREATININE 2.5 mg/dL (0.6-1.3); POTASSIUM 4.5 mmol/L (3.5-5.1); TOTAL BILIRUBIN 0.6 mg/dL (0.0-1.0)
[2020-03-02] MEDS ORDERED: ACETAMINOPHEN 325 MG TAB PO PRN (19:30)
[2020-03-02] MEDS ORDERED: HYDROcodone/APAP 7.5/325 MG 1 TAB PO PRN (19:30)
[2020-03-02] MEDS ORDERED: ONDANSETRON 4 MG/2 ML VIAL IVP PRN (19:30)
[2020-03-02 20:01] LABS: PROTHROMBIN TIME 19.5 secs (10.8-13.4)
[2020-03-02 20:08] LABS: MAGNESIUM 2.3 mg/dL (1.8-2.4); THYROID STIMULATING HORMONE 3.53 uIU/mL (0.34-3.74)
[2020-03-02] MEDS: DOCUSATE SODIUM 100 MG GELCAP PO SCH (21:19)
[2020-03-02 21:44] VITALS: BP 105/65
[2020-03-02] MEDS ORDERED: ALBUTEROL HFA MDI 90 MCG/ACTUATION 8 GM INH PRN (22:15)
[2020-03-02] MEDS: FUROSEMIDE 40 MG/4 ML VIAL IVP SCH (22:55)
[2020-03-03] VITALS: BP 100/64
[2020-03-03 04:00] VITALS: BP 110/91
[2020-03-03] MEDS ORDERED: NACL 0.9% 1,000 ML IV SCH (05:55)
[2020-03-03 08:00] VITALS: BP 129/99
[2020-03-03 08:04] LABS: BASOPHILS % (AUTO) 0.4 % (0.0-2.0); EOSINOPHILS # (AUTO) 0.1 K/uL (0-0.4); EOSINOPHILS % (AUTO) 0.8 % (0.0-4.0); HEMATOCRIT 37.5 % (36-52); HEMOGLOBIN 11.7 g/dL (12.0-18.0); LYMPHOCYTES # (AUTO) 2.2 K/uL (2.0-11.5); LYMPHOCYTES % (AUTO) 19.1 % (20.5-51.1); MEAN CORPUSCULAR HEMOGLOBIN 26 pg (27-31); MEAN CORPUSCULAR HGB CONC 31 g/dL (33-37); MEAN CORPUSCULAR VOLUME 83.7 fL (80-94); MONOCYTES # (AUTO) 0.6 K/uL (0.8-1.0); MONOCYTES % (AUTO) 5.3 % (1.7-9.3); NEUTROPHILS # (AUTO) 8.5 K/uL (1.8-7.7); NEUTROPHILS % (AUTO) 74.4 % (42.2-75.2); PLATELET COUNT (AUTO) 225 K/uL (140-450); RED BLOOD CELL COUNT(AUTO) 4.48 MIL/uL (4.20-6.10); RED CELL DISTRIBUTION WIDTH 16.3 % (11.6-13.7); WHITE BLOOD COUNT (AUTO) 11.4 K/uL (4.8-10.8)
[2020-03-03 08:20] LABS: APPEARANCE,URINE CLEAR (CLEAR); BILIRUBIN,URINE 1+ (NEGATIVE); BLOOD, URINE NEGATIVE (NEGATIVE); COLOR,URINE DARK YELLOW (YELLOW); LEUKOCYTE ESTERASE ,URINE NEGATIVE (NEGATIVE); NITRITE, URINE NEGATIVE (NEGATIVE); UGLUCOSE NEGATIVE (NEGATIVE)
[2020-03-03 08:23] LABS: ANION GAP 14.1 (8-16); CARBON DIOXIDE 27.6 mmol/L (21-32); CREATININE 2.8 mg/dL (0.6-1.3); POTASSIUM 4.7 mmol/L (3.5-5.1)
[2020-03-03 08:26] LABS: MAGNESIUM 2.3 mg/dL (1.8-2.4); PHOSPHORUS 6.3 mg/dL (2.5-4.9)
[2020-03-03] MEDS: LISINOPRIL 20 MG TAB PO SCH (09:04)
[2020-03-03] MEDS: FAMOTIDINE 20 MG TAB PO SCH (09:04)
[2020-03-03] MEDS: ATORVASTATIN 20 MG TAB PO SCH (09:04)
[2020-03-03] MEDS: FUROSEMIDE 40 MG/4 ML VIAL IVP SCH (09:05)
[2020-03-03] MEDS: DOCUSATE SODIUM 100 MG GELCAP PO SCH ×2 (09:05→20:05)
[2020-03-03 09:10] LABS: CHOL/HDL RATIO 5.3 (1-4.5)
[2020-03-03 12:00] VITALS: BP 92/58
[2020-03-03 16:00] VITALS: BP 90/49
[2020-03-03] MEDS ORDERED: WARFARIN 1 MG TAB PO SCH (17:00)
[2020-03-03 20:00] VITALS: BP 87/57
[2020-03-03] MEDS: ALBUTEROL HFA MDI 90 MCG/ACTUATION 8 GM INH PRN (22:38)
[2020-03-04] VITALS: BP 114/91
[2020-03-04 04:00] VITALS: BP 97/77
[2020-03-04 07:19] LABS: ANION GAP 19.4 (8-16); CARBON DIOXIDE 21.8 mmol/L (21-32); CREATININE 3.9 mg/dL (0.6-1.3); POTASSIUM 5.2 mmol/L (3.5-5.1)
[2020-03-04 07:20] LABS: MAGNESIUM 2.5 mg/dL (1.8-2.4); PHOSPHORUS 7.4 mg/dL (2.5-4.9)
[2020-03-04 07:23] LABS: BASOPHILS # (AUTO) 0.1 K/uL (0.00-0.22); BASOPHILS % (AUTO) 0.4 % (0.0-2.0); EOSINOPHILS % (AUTO) 0.2 % (0.0-4.0); HEMATOCRIT 39.2 % (36-52); HEMOGLOBIN 12.3 g/dL (12.0-18.0); LYMPHOCYTES # (AUTO) 1.9 K/uL (2.0-11.5); LYMPHOCYTES % (AUTO) 14.3 % (20.5-51.1); MEAN CORPUSCULAR HEMOGLOBIN 26 pg (27-31); MEAN CORPUSCULAR HGB CONC 31 g/dL (33-37); MEAN CORPUSCULAR VOLUME 83.4 fL (80-94); MONOCYTES # (AUTO) 0.5 K/uL (0.8-1.0); MONOCYTES % (AUTO) 3.9 % (1.7-9.3); NEUTROPHILS # (AUTO) 10.7 K/uL (1.8-7.7); NEUTROPHILS % (AUTO) 81.2 % (42.2-75.2); PLATELET COUNT (AUTO) 277 K/uL (140-450); RED BLOOD CELL COUNT(AUTO) 4.71 MIL/uL (4.20-6.10); RED CELL DISTRIBUTION WIDTH 16.7 % (11.6-13.7); WHITE BLOOD COUNT (AUTO) 13.2 K/uL (4.8-10.8)
[2020-03-04 07:49] LABS: PROTHROMBIN TIME 20.9 secs (10.8-13.4)
[2020-03-04 08:00] VITALS: BP 100/40
[2020-03-04] MEDS: ALBUTEROL HFA MDI 90 MCG/ACTUATION 8 GM INH PRN (08:11)
[2020-03-04] MEDS: ATORVASTATIN 20 MG TAB PO SCH (08:50)
[2020-03-04] MEDS: DOCUSATE SODIUM 100 MG GELCAP PO SCH (08:50)
[2020-03-04] MEDS: FAMOTIDINE 20 MG TAB PO SCH (08:50)
[2020-03-04] MEDS: LISINOPRIL 20 MG TAB PO SCH (08:51)
[2020-03-04] MEDS ORDERED: FUROSEMIDE 40 MG/4 ML VIAL IVP SCH (09:00)
== END 2020-03-04 17:40 | disposition expired ==
LOC: MED 16:48 → MTU 19:28
PROVIDERS: ADMIT General Practice; ATTEND General Practice
DX: I21.A1 Myocardial infarction type 2 (principal); N17.0 Acute kidney failure with tubular necrosis; I50.43 Acute on chronic combined systolic (congestive) and diastolic (congestive) heart failure; Z68.42 Body mass index [BMI] 45.0-49.9, adult; I13.0 Hypertensive heart and chronic kidney disease with heart failure and stage 1 through stage 4 chronic kidney disease, or unspecified chronic kidney disease; J44.9 Chronic obstructive pulmonary disease, unspecified; I95.9 Hypotension, unspecified; Z95.2 Presence of prosthetic heart valve; E78.5 Hyperlipidemia, unspecified; E66.9 Obesity, unspecified; Z91.19 Patient's noncompliance with other medical treatment and regimen; E83.39 Other disorders of phosphorus metabolism; E66.01 Morbid (severe) obesity due to excess calories; I46.9 Cardiac arrest, cause unspecified; N18.9 Chronic kidney disease, unspecified; E83.41 Hypermagnesemia
CPT/HCPCS: 36415; 71045; 80048; 80053; 81003; 82948; 83036; 83690; 83735; 83880; 84100; 84443; 84484; 85025; 85610; 85730; 87081; 92950; 93005; 94664; 99291; J1940; J7030; Q0092